=== PATIENT | female | born 1935 | race Caucasian/White ===

== ENCOUNTER 2018-11-28 17:49 | Emergency (ER) | payer MEDICARE, OTHER ==
[~2018-11-28] VITALS: Ht 154.9 cm; Wt 44.5 kg
[2018-11-28] MEDS ORDERED: ASPIRIN 81 MG CHEW (CHILDREN'S ASA) ONE (17:58)
--- NOTE | 2018-11-28 18:01 | ED Cardiac General ---
History of Present Illness General Chief Complaint: Respiratory Problems Stated Complaint: SOA Source: patient (EXTREMELY DIFFICULT HISTORIAN) History of Present Illness Date Seen by Provider: Nov 28, 2018 Time Seen by Provider: 17:49 Initial Comments PT ARRIVES VIA POV FROM HOME STATES "BREATHING" "HURTING" "PAIN" C/O PAIN TO LEFT CHEST STATES SYMPTOMS BEGAN A COUPLE OF DAYS AGO, NO DIFFERENT TODAY HAS NOT SOUGHT CARE UNTIL TODAY TOOK 2 ALEVE JUST PRIOR TO ARRIVAL, OTHERWISE HAS NOT TAKEN ANYTHING FOR PAIN NO SWELLING TO FEET/ANKLES OCCASIONAL MILD COUGH NO FEVER NO DIRECT TRAUMA, BUT FEELS LIKE SHE PULLED A MUSCLE LIFTING A GALLON OF WATER AND MILK NO HISTORY OF CARDIAC OR RESPIRATORY PROBLEMS HAS HX OF HTN AND "STOMACH PROBLEMS" STATES SHE HAS HAD "ALOT OF GAS AND CONSTIPATION FOR 4-5 DAYS" "I HAVE IBS" PCP: DR. FREEDMAN--HAS APPOINTMENT NEXT WEEK "JUST MOVED HERE" Allergies and Home Medications Allergies Coded Allergies: codeine (Verified Allergy, Unknown, 11/28/18) sulfamethoxazole (Verified Allergy, Unknown, 11/28/18) tramadol (Verified Allergy, Unknown, 11/28/18) trimethoprim (Verified Allergy, Unknown, 11/28/18) Uncoded Allergies: IV CONTRAST (Allergy, Unknown, 11/28/18) Home Medications Cefdinir 300 Mg Capsule, 300 MG PO BID Prescribed by: VARSHA JAIME on 11/28/181925 Ondansetron 8 Mg Tab.rapdis, 8 MG PO Q6H Prescribed by: VARSHA JAIME on 11/28/181925 Patient Home Medication List Home Medication List Reviewed: Yes Review of Systems Review of Systems Constitutional: No fever Respiratory: No Symptoms Reported, Shortness of Air Cardiovascular: See HPI, Chest Pain Gastrointestinal: See HPI, Constipated; Denies Nausea, Denies Vomiting Musculoskeletal: No back pain Psychiatric/Neurological: No Symptoms Reported Past Ofpxaqx-Etikvn-Iiylxj Hx Patient Social History Smoking Status: Current Everyday Smoker (> 1 PPD) Recent Foreign Travel: No Contact w/Someone Who Travel: No Past Medical History Surgeries: Yes (LEFT HIP; HYST; CATARACTS) Eye Surgery, Gallbladder, Hysterectomy, Orthopedic, Tonsillectomy Respiratory: No Cardiac: Yes Hypertension Neurological: No Genitourinary: No Gastrointestinal: Yes Gastroesophageal Reflux, Irritable Bowel Musculoskeletal: No Endocrine: No HEENT: No Cancer: No Psychosocial: Yes Anxiety Physical Exam Vital Signs Vital Signs - First Documented 11/28/18 17:49 Pulse 63 Resp 17 B/P (MAP) 140/72 (94) Pulse Ox 100 O2 Delivery Room Air Capillary Refill : Height, Weight, BMI Height: '" Weight: lbs. oz. kg; BMI Method: General Appearance: No Apparent Distress, Cachetic Neck: Full Range of Motion, Normal Inspection, Non Tender, Supple; No Carotid Bruit Respiratory: Normal Breath Sounds, No Accessory Muscle Use, No Respiratory Distress, Other (LEFT ANTERIOR CHEST WALL TENDERNESS. NO CREPITANCE OF SUB Q AIR. 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 II- XII Norm as Tested, Other (SOMEWHAT ANXIOUS) Skin: Normal Color, Warm/Dry; No Rash Progress/Results/Core Measures Results/Orders Lab Results Laboratory Tests Test 11/28/18 18:00 11/28/18 18:54 Range/Units White Blood Count 7.8 4.3-11.0 10^3/uL Red Blood Count 4.31 L 4.35-5.85 10^6/uL Hemoglobin 13.3 11.5-16.0 G/DL Hematocrit 39 35-52 % Mean Corpuscular Volume 91 80-99 FL Mean Corpuscular Hemoglobin 31 25-34 PG Mean Corpuscular Hemoglobin Concent 34 32-36 G/DL Red Cell Distribution Width 13.3 10.0-14.5 % Platelet Count 276 130-400 10^3/uL Mean Platelet Volume 10.7 H 7.4-10.4 FL Neutrophils (%) (Auto) 63 42-75 % Lymphocytes (%) (Auto) 27 12-44 % Monocytes (%) (Auto) 9 0-12 % Eosinophils (%) (Auto) 1 0-10 % Basophils (%) (Auto) 0 0-10 % Neutrophils # (Auto) 4.9 1.8-7.8 X 10^3 Lymphocytes # (Auto) 2.1 1.0-4.0 X 10^3 Monocytes # (Auto) 0.7 0.0-1.0 X 10^3 Eosinophils # (Auto) 0.1 0.0-0.3 10^3/uL Basophils # (Auto) 0.0 0.0-0.1 10^3/uL Prothrombin Time 12.2 12.2-14.7 SEC INR Comment 0.9 0.8-1.4 Activated Partial Thromboplast Time 32 24-35 SEC Sodium Level 135 135-145 MMOL/L Potassium Level 3.6 3.6-5.0 MMOL/L Chloride Level 99 98-107 MMOL/L Carbon Dioxide Level 25 21-32 MMOL/L Anion Gap 11 5-14 MMOL/L Blood Urea Nitrogen 10 7-18 MG/DL Creatinine 0.86 0.60-1.30 MG/DL Estimat Glomerular Filtration Rate > 60 BUN/Creatinine Ratio 12 Glucose Level 113 H 70-105 MG/DL Calcium Level 9.7 8.5-10.1 MG/DL Corrected Calcium 9.5 8.5-10.1 MG/DL Magnesium Level 1.5 L 1.6-2.4 MG/DL Total Bilirubin 0.5 0.1-1.0 MG/DL Aspartate Amino Transf (AST/SGOT) 21 5-34 U/L Alanine Aminotransferase (ALT/SGPT) 11 0-55 U/L Alkaline Phosphatase 65 40-136 U/L Total Creatine Kinase 36 29-168 U/L Creatine Kinase MB 1.4 <6.6 NG/ML Myoglobin 28.3 10.0-92.0 NG/ML Troponin I < 0.028 <0.028 NG/ML B-Type Natriuretic Peptide 38.0 <100.0 PG/ML Total Protein 7.1 6.4-8.2 GM/DL Albumin 4.3 3.2-4.5 GM/DL Amylase Level 80 25-125 U/L Lipase 13 8-78 U/L Urine Color YELLOW Urine Clarity CLEAR Urine pH 5 5-9 Urine Specific [place] 1.020 1.016-1.022 Urine Protein NEGATIVE NEGATIVE Urine Glucose (UA) NEGATIVE NEGATIVE Urine Ketones NEGATIVE NEGATIVE Urine Nitrite NEGATIVE NEGATIVE Urine Bilirubin NEGATIVE NEGATIVE Urine Urobilinogen 1 NORMAL MG/DL Urine Leukocyte Esterase 1+ H NEGATIVE Urine RBC (Auto) NEGATIVE NEGATIVE Urine RBC NONE /HPF Urine WBC 2-5 /HPF Urine Squamous Epithelial Cells 10-25 H /HPF Urine Renal Epithelial Cells RARE /HPF Urine Crystals NONE /LPF Urine Bacteria MODERATE H /HPF Urine Casts NONE /LPF Urine Mucus NEGATIVE /LPF Urine Yeast FEW H /HPF Urine Culture Indicated NO My Orders Orders - VARSHA JAIME DO Ed Iv/Invasive Line Start (11/28/18 17:56) Ekg Tracing (11/28/18 17:56) O2 (11/28/18 17:56) Monitor-Rhythm Ecg Trace Only (11/28/18 17:56) Amylase (11/28/18 17:56) BNP (11/28/18 17:56) Cbc With Automated Diff (11/28/18 17:56) Comprehensive Metabolic Panel (11/28/18 17:56) Creatine Kinase (11/28/18 17:56) Creatine Kinase Mb (11/28/18 17:56) Lipase (11/28/18 17:56) Magnesium (11/28/18 17:56) Protime With Inr (11/28/18 17:56) Partial Thromboplastin Time (11/28/18 17:56) Ua Culture If Indicated (11/28/18 17:56) Myoglobin Serum (11/28/18 17:56) Troponin I (11/28/18 17:56) Aspirin Chewable Tablet (Baby Aspirin Ch (11/28/18 17:58) Chest 1 View, Ap/Pa Only (11/28/18 18:10) Magnesium Oxide Tablet (Mag Ox Tablet) (11/28/18 18:45) Ketorolac Injection (Toradol Injection) (11/28/18 18:45) Ed Iv/Invasive Line Start (11/28/18 18:45) Lactated Ringers (Lr 1000 Ml Iv Solution (11/28/18 18:45) Urine Culture (11/28/18 19:18) Cefdinir Capsule (Omnicef Capsule) (11/28/18 19:30) Medications Given in ED Current Medications Medications Dose Ordered Sig/Karri Route Start Time Stop Time Status Last Admin Dose Admin Aspirin 81 mg STK-MED ONCE .ROUTE 11/28/18 17:58 11/28/18 18:08 DC 11/28/18 18:09 81 MG Ketorolac Tromethamine 30 mg ONCE ONCE IVP 11/28/18 18:45 11/28/18 18:46 DC 11/28/18 19:08 30 MG Lactated Ringer's 1,000 ml @ 0 mls/hr Q0M ONCE IV 11/28/18 18:45 11/28/18 18:46 DC 11/28/18 19:08 999 MLS/HR Magnesium Oxide 1,200 mg ONCE ONCE PO 11/28/18 18:45 11/28/18 18:46 DC 11/28/18 19:08 1,200 MG Vital Signs/I&O 11/28/18 17:49 Pulse 63 Resp 17 B/P (MAP) 140/72 (94) Pulse Ox 100 O2 Delivery Room Air Progress Progress Note : Progress Note SYMPTOMS IMPROVED AT DISMISSAL Initial ECG Impression Date: Nov 28, 2018 Initial ECG Impression Time: 17:57 Initial ECG Rate: 65 Initial ECG Rhythm: Normal Sinus Initial ECG Comparisson: No Previous ECG Available Diagnostic Imaging Comments CXR--NO ACUTE PROCESS, PER RADIOLOGIST REPORT AT 1839 Reviewed: Reviewed by Me Departure Impression Primary Impression: Left-sided chest wall pain Additional Impressions: UTI (urinary tract infection) Hypomagnesemia Disposition: 01 HOME, SELF-CARE Condition: Improved Departure-Patient Inst. Referrals: CHIKIS FREEDMAN MD Patient Instructions: Low Magnesium Level (DC), Urinary Tract Infection, Adult (DC), Costochondritis Add. Discharge Instructions: INCREASE YOUR CLEAR LIQUIDS--NO COFFEE, POP OR TEA TYLENOL AND ALEVE NEEDED FOR PAIN KEEP YOUR APPOINTMENT ON SUNDAY WITH DR. FREEDMAN All discharge instructions reviewed with patient and/or family. Voiced understanding. Scripts Ondansetron (Ondansetron Odt) 8 Mg Tab.rapdis 8 MG PO Q6H for Nausea/Vomiting, #10 TAB Prov: VARSHA JAIME DO 11/28/18 Cefdinir (Cefdinir) 300 Mg Capsule 300 MG PO BID for FOR INFECTION, #20 CAP Prov: VARSHA JAIME DO 11/28/18 VARSHA JAIME DO Nov 28, 2018 18:01
[2018-11-28] MEDS ORDERED: AMLO10TA7 (18:07)
[2018-11-28] MEDS ORDERED: FLUT16SP22 (18:07)
[2018-11-28] MEDS ORDERED: MONT10TA24 (18:07)
[2018-11-28] MEDS ORDERED: LORA0.5T (18:07)
[2018-11-28] MEDS ORDERED: CETI10TA17 (18:07)
[2018-11-28] MEDS ORDERED: ESOM40CA52 (18:07)
[2018-11-28] MEDS ORDERED: ONDA8TAB12 (18:07)
[2018-11-28 18:18] LABS: BASOPHILS % (AUTO) 0 % (0-10); EOSINOPHILS # (AUTO) 0.1 10^3/uL (0.0-0.3); EOSINOPHILS % (AUTO) 1 % (0-10); HEMATOCRIT 39 % (35-52); HEMOGLOBIN 13.3 G/DL (11.5-16.0); LYMPHOCYTES # (AUTO) 2.1 X 10^3 (1.0-4.0); LYMPHOCYTES % (AUTO) 27 % (12-44); MEAN CORPUSCULAR HEMOGLOBIN 31 PG (25-34); MEAN CORPUSCULAR HGB CONC 34 G/DL (32-36); MEAN CORPUSCULAR VOLUME 91 FL (80-99); MEAN PLATELET VOLUME 10.7 FL (7.4-10.4); MONOCYTES # (AUTO) 0.7 X 10^3 (0.0-1.0); MONOCYTES % (AUTO) 9 % (0-12); NEUTROPHILS # (AUTO) 4.9 X 10^3 (1.8-7.8); NEUTROPHILS % (AUTO) 63 % (42-75); PLATELET COUNT 276 10^3/uL (130-400); RED CELL DISTRIBUTION WIDTH 13.3 % (10.0-14.5); WHITE BLOOD COUNT 7.8 10^3/uL (4.3-11.0)
[2018-11-28 18:24] LABS: INR 0.9 (0.8-1.4); PROTHROMBIN TIME PATIENT 12.2 SEC (12.2-14.7)
[2018-11-28 18:34] LABS: ALANINE AMINOTRANSFERASE 11 U/L (0-55); ALBUMIN 4.3 GM/DL (3.2-4.5); ALKALINE PHOSPHATASE 65 U/L (40-136); AMYLASE 80 U/L (25-125); BILIRUBIN,TOTAL 0.5 MG/DL (0.1-1.0); BUN/CREATININE RATIO 12; CALCIUM 9.7 MG/DL (8.5-10.1); CARBON DIOXIDE 25 MMOL/L (21-32); CHLORIDE 99 MMOL/L (98-107); CREATINE KINASE 36 U/L (29-168); CREATININE SERUM 0.86 MG/DL (0.60-1.30); GFR ESTIMATED > 60; GLUCOSE 113 MG/DL (70-105); LIPASE 13 U/L (8-78); MAGNESIUM 1.5 MG/DL (1.6-2.4); POTASSIUM 3.6 MMOL/L (3.6-5.0); SODIUM 135 MMOL/L (135-145); TOTAL PROTEIN 7.1 GM/DL (6.4-8.2)
--- NOTE | 2018-11-28 18:37 | Diagnostic Imaging Report ---
INDICATION: Left shoulder and arm pain. EXAMINATION: Portable upright AP view of the chest is obtained. COMPARISON: No previous study is available for comparison at this time. FINDINGS: Heart size and pulmonary vasculature are within normal limits, and the lungs are clear, bilaterally. IMPRESSION: Unremarkable chest. Dictated by: Dictated on workstation # [id number]
[2018-11-28 18:41] LABS: CREATINE KINASE MB 1.4 NG/ML (<6.6)
[2018-11-28] MEDS ORDERED: LACTATED RINGERS 1,000 ML IV ONE (18:45)
[2018-11-28] MEDS ORDERED: KETOROLAC 30 MG/ML VIAL IVP ONE (18:45)
[2018-11-28] MEDS ORDERED: MAGNESIUM OXIDE (MAG-OX)400 MG TAB PO ONE (18:45)
[2018-11-28 19:00] LABS: BILIRUBIN,URINE NEGATIVE (NEGATIVE); CLARITY,URINE CLEAR; COLOR,URINE YELLOW; GLUCOSE, URINE (UA) NEGATIVE (NEGATIVE); KETONES,URINE NEGATIVE (NEGATIVE); LEUKOCYTE ESTERASE ,URINE 1+ (NEGATIVE); NITRITE,URINE NEGATIVE (NEGATIVE); PH,URINE 5 (5-9); PROTEIN,URINE NEGATIVE (NEGATIVE); UROBILINOGEN,URINE 1 MG/DL (NORMAL)
[2018-11-28 19:09] LABS: RENAL EPITHELIAL CELLS,URINE RARE /HPF
[2018-11-28 19:10] LABS: YEAST,URINE FEW /HPF
[2018-11-28 19:11] LABS: BACTERIA,URINE MODERATE /HPF
[2018-11-28] MEDS ORDERED: CEFD300C3 PO (19:26)
[2018-11-28] MEDS ORDERED: ONDA8TAB13 PO (19:26)
[2018-11-28] MEDS ORDERED: CEFDINIR 300 MG (OMNICEF) CAP PO ONE (19:30)
[2018-11-28 20:03] VITALS: BP 133/53
== END 2018-11-28 20:04 | disposition home or self-care (01) ==
LOC: ER 17:51
DX: R07.89 Other chest pain (principal); N39.0 Urinary tract infection, site not specified; E83.42 Hypomagnesemia; I10 Essential (primary) hypertension; F41.9 Anxiety disorder, unspecified; K21.9 Gastro-esophageal reflux disease without esophagitis; K58.9 Irritable bowel syndrome, unspecified; F17.210 Nicotine dependence, cigarettes, uncomplicated; Z90.710 Acquired absence of both cervix and uterus; Z90.89 Acquired absence of other organs; Z88.5 Allergy status to narcotic agent; Z88.2 Allergy status to sulfonamides; Z88.1 Allergy status to other antibiotic agents; Z91.041 Radiographic dye allergy status
CPT/HCPCS: 36415; 71045; 80053; 81000; 82150; 82550; 82553; 83690; 83735; 83874; 83880; 84484; 85025; 85610; 85730; 87088; 93041

== ENCOUNTER → 2020-07-14 | Outpatient (CLI) | payer MEDICARE ==
[~2020-07-14] MED LIST: AMLO-251; CEFD300C3 PO; CETI10TA17; ESOM40CA52; FLUT16SP22; LORA0.5T; MONT10TA32; ONDA8TAB13 PO; ONDA8TAB15
--- NOTE | 2020-07-14 14:52 | Diagnostic Imaging Report ---
PROCEDURE: CT left lower extremity without contrast. TECHNIQUE: Multiple contiguous axial images were obtained through the left lower extremity without the use of intravenous contrast. Sagittal and coronal reformations were then performed. Auto Exposure Controls were utilized during the CT exam to meet ALARA standards for radiation dose reduction. INDICATION: Left tibial plateau fracture. COMPARISON: None. FINDINGS: There is diffuse osteopenia, resulting in suboptimal evaluation. There is a moderate right knee joint effusion. There is mild depression of the lateral tibial plateau by about 3 mm at the lateral most aspect. There is mild underlying sclerosis. Alignment otherwise appears normal. The menisci and ligaments are not well evaluated by CT. There is mild generalized muscular atrophy. IMPRESSION: 1. Minimally depressed lateral tibial plateau, concerning for an acute fracture. Please correlate with clinical history and if indicated MRI could be considered to confirm acuity. 2. Moderate left knee joint effusion. Dictated by: Dictated on workstation # [id number]
== END ==
LOC: RAD 13:15
PROVIDERS: ATTEND Internal Medicine
DX: S82.142A Displaced bicondylar fracture of left tibia, initial encounter for closed fracture (principal)
CPT/HCPCS: 73700

== ENCOUNTER 2021-02-13 13:25 | Emergency (ER) | payer MEDICARE ==
[~2021-02-13] VITALS: Ht 167 cm; Wt 44.5 kg
[~2021-02-13 13:25] MED LIST changes: +MONT-40; -MONT10TA32; +ONDA-106; -ONDA8TAB15
--- NOTE | 2021-02-13 13:57 | ED Lower Extremity ---
General Stated Complaint: FALL Source: patient, family Exam Limitations: no limitations (ANTONIO INGRAM) History of Present Illness Date Seen by Provider: Feb 13, 2021 Time Seen by Provider: 13:56 Initial Comments Patient is a 85-year-old female who presents ED with left knee pain. Mechanical fall around 4:00 this morning. She was walking to the bathroom when her cane got stuck in a rug. She fell landing on her left knee. Patient lives with daughter. Assisted patient up on the bed. Has been icing the left knee. Has not been able to stand or bear weight or move her left knee at this time. Denies hitting her head, loss of consciousness, chest pain, back pain or on blood thinners. Denies taking anything for pain. (ANTONIO INGRAM) Allergies and Home Medications Allergies Coded Allergies: codeine (Verified Allergy, Unknown, 11/28/18) sulfamethoxazole (Verified Allergy, Unknown, 11/28/18) tramadol (Verified Allergy, Unknown, 11/28/18) trimethoprim (Verified Allergy, Unknown, 11/28/18) Uncoded Allergies: IV CONTRAST (Allergy, Unknown, 11/28/18) Patient Home Medication List Home Medication List Reviewed: Yes (ANTONIO INGRAM) Amlodipine Besylate (Amlodipine Besylate) 10 Mg Tablet, (Reported) Entered as Reported by: MATTHEW FARRIS on 11/28/181806 Cefdinir (Cefdinir) 300 Mg Capsule, 300 MG PO BID Prescribed by: VARSHA JAIME on 11/28/181925 Cetirizine HCl (Cetirizine HCl) 10 Mg Tablet, (Reported) Entered as Reported by: MATTHEW FARRIS on 11/28/181806 Esomeprazole Magnesium (Esomeprazole Magnesium) 40 Mg Capsule.dr, (Reported) Entered as Reported by: MATTHEW FARRIS on 11/28/181806 Fluticasone Propionate (Fluticasone Propionate) 16 Gm [place].susp, (Reported) Entered as Reported by: MATTHEW FARRIS on 11/28/181806 Hydrocodone/Acetaminophen (Hydrocodone-Acetamin 5-325 mg) 1 Each Tablet, 1 TAB PO Q4H PRN for PAIN-MODERATE (5-7) Prescribed by: SANDOVAL SALAZAR on 02/13/21 1514 Lorazepam (Lorazepam) 0.5 Mg Tablet, (Reported) Entered as Reported by: MATTHEW FARRIS on 11/28/181806 Montelukast Sodium (Montelukast Sodium) 10 Mg Tablet, (Reported) Entered as Reported by: MATTHEW FARRIS on 11/28/181806 Ondansetron (Ondansetron Odt) 8 Mg Tab.rapdis, 8 MG PO Q6H Prescribed by: VARSHA JAIME on 11/28/181925 Ondansetron (Ondansetron Odt) 4 Mg Tab.rapdis, 4 MG PO TID Prescribed by: SANDOVAL SALAZAR on 02/13/211947 Last Action: New Order Ondansetron HCl (Ondansetron HCl) 8 Mg Tablet, (Reported) Entered as Reported by: MATTHEW FARRIS on 11/28/181806 Review of Systems Constitutional: No chills, No dizziness, No fever, No malaise EENTM: No ear pain, No eye pain, No throat pain Respiratory: No cough, No short of breath Gastrointestinal: No abdominal pain, No diarrhea, No vomiting Genitourinary: No decreased output Musculoskeletal: joint pain (Left knee tenderness. Joint effusion noted. 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 oz. kg; 18.00 BMI Method: General Appearance: WD/WN, no apparent distress HEENT: PERRL/EOMI, normal ENT inspection, TMs normal Neck: non-tender, full range of motion, supple, normal inspection Cardiovascular: regular rate, rhythm, no edema, no gallop Respiratory: chest non-tender, lungs clear, normal breath sounds, no respira tory distress Gastrointestinal: normal bowel sounds, non tender, soft Knees: left knee bone tenderness, left knee joint effusion, left knee soft tissue tenderness, left knee swelling Neurologic/Psychiatric: weigh box tender II-XII nml as tested, no motor/sensory deficits, alert, normal mood/affect, oriented x 3 Skin: normal color, warm/dry (ANTONIO INGRAM) Progress/Results/Core Measures Results/Orders My Orders Orders - DIMITRI KLINE MD Hydrocodone/Apap 5/325 Tablet (Lortab 5 (02/13/21 15:45) (DIMITRI KLINE MD) Medications Given in ED Current Medications Medications Dose Ordered Sig/Karri Route Start Time Stop Time Status Last Admin Dose Admin Acetaminophen/ Hydrocodone Bitart 1 ea ONCE ONCE PO 02/13/21 15:45 02/13/21 15:46 DC 02/13/21 15:42 1 EA (DIMITRI KLINE MD) Vital Signs/I&O 02/13/21 02/13/21 02/13/21 13:30 13:30 16:00 Temp 37.0 37.0 Pulse 64 64 67 Resp 18 18 20 B/P (MAP) 157/75 (102) 157/75 (102) 142/70 Pulse Ox 97 97 98 O2 Delivery Room Air Room Air Room Air (DIMITRI KLINE MD) Departure Communication (Admissions) X-ray was negative for fracture. Large joint effusion noted. Concerning for occult fracture. Patient was placed in a knee immobilizer. We will have patient follow-up with Dr. Philip orthopedic outpatient . Discussed patient with Dr. Philip who recommends outpatient follow-up with MRI. Patient was given a order for a wheelchair for at home. Lives at home with daughter to help patient get around. Will discharge with pain medication. She has no other complaints. Mechanical fall. GCS 15. Alert and oriented x3. Neurovascularly intact. (ANTONIO INGRAM) Impression Primary Impression: Knee pain Disposition: 01 HOME, SELF-CARE Condition: Stable Departure-Patient Inst. Decision time for Depature: 14:57 (ANTONIO INGRAM) Referrals: NO,LOCAL PHYSICIAN (PCP) Primary Care Physician TRUMAN PHILIP MD Patient Instructions: Joint Pain, Knee Pain (DC) Scripts Ondansetron (Ondansetron Odt) 4 Mg Tab.rapdis 4 MG PO TID for Nausea, #10 TAB Prov: ANTONIO INGRAM 02/13/21 Hydrocodone/Acetaminophen (Hydrocodone-Acetamin 5-325 mg) 1 Each Tablet 1 TAB PO Q4H PRN for PAIN-MODERATE (5-7), #14 TAB Prov: ANTONIO INGRAM 02/13/21 ATTENDING PHYSICIAN NOTE: I was physically present as attending physician in the emergency department during the care of this patient, but I was not directly involved in the decision making or delivery of care for this patient except for ordering pain medication. (DIMITRI KLINE MD) ANTONIO INGRAM Feb 13, 2021 13:57 DIMITRI KLINE MD Feb 13, 2021 20:26
--- NOTE | 2021-02-13 14:37 | Diagnostic Imaging Report ---
EXAMINATION: Left knee radiographs, 3 views. COMPARISON: None. HISTORY: 85-year-old female, fall. Left knee pain. FINDINGS: The bones appear demineralized. There is a large knee joint effusion. There is no radiographically appreciable fracture. The joint spaces appear fairly well preserved. There is no identified radiopaque foreign body. IMPRESSION: 1. Large knee joint effusion. 2. Bone demineralization without radiographically appreciable fracture. Particularly given degree of bone demineralization as well as presence of knee joint effusion, there is high concern for fracture, MRI of the left knee is recommended for further assessment. 3. No identified radiopaque foreign body. Dictated by: Dictated on workstation # [id number]
[2021-02-13] MEDS ORDERED: ACHD5005 PO (15:13)
[2021-02-13] MEDS ORDERED: HYDROcodone/APAP 5 MG/325 MG (LORTAB) TAB PO ONE (15:45)
[2021-02-13 16:00] VITALS: BP 142/70
[2021-02-13] MEDS ORDERED: RX-ONDANSETRON 4 MG ODT (ZOFRAN) PPK #4 ONE (19:45)
[2021-02-13] MEDS ORDERED: ONDA4TAB11 PO (19:48)
== END 2021-02-13 16:00 | disposition home or self-care (01) ==
LOC: EDUNIT# 13:25 → ER 13:26
DX: M25.562 Pain in left knee (principal); I10 Essential (primary) hypertension; K21.9 Gastro-esophageal reflux disease without esophagitis; F41.9 Anxiety disorder, unspecified; Z79.899 Other long term (current) drug therapy
CPT/HCPCS: 73562; 99283; L1830

== ENCOUNTER 2021-04-23 16:10 | Emergency (ER) | payer MEDICARE ==
[~2021-04-23] VITALS: Ht 160 cm; Wt 50.0 kg
[~2021-04-23 16:10] MED LIST changes: +ACHD5005 PO; +ONDA4TAB11 PO
[2021-04-23] MEDS ORDERED: NS IV 500 ML 500 ML IV ONE (17:15)
[2021-04-23] MEDS ORDERED: NS IV 1000 ML 1,000 ML IV SCH (17:45)
[2021-04-23] MEDS ORDERED: NS IV 1000 ML 1,000 ML ONE (17:47)
[2021-04-23 17:52] LABS: BASOPHILS % (AUTO) 0 % (0-10); EOSINOPHILS % (AUTO) 0 % (0-10); HEMATOCRIT 38 % (35-52); HEMOGLOBIN 13.2 g/dL (11.5-16.0); LYMPHOCYTES # (AUTO) 1.3 10^3/uL (1.0-4.0); LYMPHOCYTES % (AUTO) 16 % (12-44); MEAN CORPUSCULAR HEMOGLOBIN 30 pg (25-34); MEAN CORPUSCULAR HGB CONC 35 g/dL (32-36); MEAN CORPUSCULAR VOLUME 88 fL (80-99); MEAN PLATELET VOLUME 10.9 fL (9.0-12.2); MONOCYTES # (AUTO) 0.9 10^3/uL (0.0-1.0); MONOCYTES % (AUTO) 11 % (0-12); NEUTROPHILS # (AUTO) 5.9 10^3/uL (1.8-7.8); NEUTROPHILS % (AUTO) 73 % (42-75); PLATELET COUNT 281 10^3/uL (130-400); WHITE BLOOD COUNT 8.1 10^3/uL (4.3-11.0)
[2021-04-23 18:01] LABS: BILIRUBIN,URINE NEGATIVE (NEGATIVE); CLARITY,URINE SL CLOUDY; COLOR,URINE YELLOW; GLUCOSE, URINE (UA) NEGATIVE (NEGATIVE); KETONES,URINE TRACE (NEGATIVE); LEUKOCYTE ESTERASE ,URINE NEGATIVE (NEGATIVE); NITRITE,URINE NEGATIVE (NEGATIVE); PROTEIN,URINE NEGATIVE (NEGATIVE)
[2021-04-23 18:04] LABS: ALBUMIN 3.6 GM/DL (3.2-4.5)
[2021-04-23 18:05] LABS: POTASSIUM 2.8 MMOL/L (3.6-5.0)
[2021-04-23 18:06] LABS: CALCIUM 9.2 MG/DL (8.5-10.1)
[2021-04-23 18:07] LABS: TOTAL PROTEIN 6.6 GM/DL (6.4-8.2)
[2021-04-23 18:09] LABS: BILIRUBIN,TOTAL 0.7 MG/DL (0.1-1.0)
[2021-04-23 18:10] LABS: BACTERIA,URINE NEGATIVE /HPF; WBC,URINE 0-2 /HPF
[2021-04-23 18:11] LABS: CREATININE SERUM 0.69 MG/DL (0.60-1.30)
--- NOTE | 2021-04-23 18:25 | ED Abdominal Pain ---
General Chief Complaint: Abdominal/GI Problems Stated Complaint: FLU FOR 8 DAYS, N/V/DIARHEA Nursing Triage Note: TO ED PER W/C ACCOMPIED BY DAUGHTER PATIENT AND DAUGHTER REPORT PATIENT HAS HAD VOMITING,DIARRHEA,WITH ABD PAIN FOR 8 DAYS. DID HOME COVID TEST 3 DAYS AGO THAT WAS NEG. HAS HAD COVID VACCAINE X2 (KAROL SHARMA) History of Present Illness Date Seen by Provider: Apr 23, 2021 Time Seen by Provider: 17:00 Initial Comments 85-year-old female presents for an 8-day history of diarrhea, vomiting, and abdominal pain. She has a history of diverticulitis. She has chronic GI symptoms. She reports no solid food intake for the last few days. She is able to liquids and. She has been taking Zofran with no improvement. She has not seen her Primary care provider. Previous cholecystectomy. She has received her COVID vaccine and booster. She took a home Covid test that was -3 days ago. Timing/Duration: 1 Week Severity/Quality: Moderate Location: Generalized Abdomen Radiation: No Radiation Associated Symptoms: No Back Pain, No Chest Pain, No Diaphoresis, No Fever/Chills, No Heartburn; Nausea/Vomiting; No Shortness of Air, No Swelling/Mass in Abdomen; Weakness (KAROL SHARMA) Allergies and Home Medications Allergies Coded Allergies: codeine (Verified Allergy, Unknown, 11/28/18) sulfamethoxazole (Verified Allergy, Unknown, 11/28/18) tramadol (Verified Allergy, Unknown, 11/28/18) trimethoprim (Verified Allergy, Unknown, 11/28/18) Uncoded Allergies: IV CONTRAST (Allergy, Unknown, 11/28/18) Patient Home Medication List Home Medication List Reviewed: Yes (KAROL SHARMA) Amlodipine Besylate (Amlodipine Besylate) 10 Mg Tablet, (Reported) Entered as Reported by: MATTHEW FARRIS on 11/28/181806 Cefdinir (Cefdinir) 300 Mg Capsule, 300 MG PO BID Prescribed by: VARSHA JAIME on 11/28/181925 Cetirizine HCl (Cetirizine HCl) 10 Mg Tablet, (Reported) Entered as Reported by: MATTHEW FARRIS on 11/28/181806 Ciprofloxacin HCl (Cipro) 250 Mg Tablet, 250 MG PO BID Prescribed by: KAROL SHARMA on 04/23/211925 Esomeprazole Magnesium (Esomeprazole Magnesium) 40 Mg Capsule.dr, (Reported) Entered as Reported by: MATTHEW FARRIS on 11/28/181806 Fluticasone Propionate (Fluticasone Propionate) 16 Gm [place].susp, (Reported) Entered as Reported by: MATTHEW FARRIS on 11/28/181806 Hydrocodone/Acetaminophen (Hydrocodone-Acetamin 5-325 mg) 1 Each Tablet, 1 TAB PO Q4H PRN for PAIN-MODERATE (5-7) Prescribed by: SANDOVAL SALAZAR on 02/13/21 1514 Lorazepam (Lorazepam) 0.5 Mg Tablet, (Reported) Entered as Reported by: MATTHEW FARRIS on 11/28/181806 Montelukast Sodium (Montelukast Sodium) 10 Mg Tablet, (Reported) Entered as Reported by: MATTHEW FARRIS on 11/28/181806 Ondansetron (Ondansetron Odt) 8 Mg Tab.rapdis, 8 MG PO Q6H Prescribed by: VARSHA JAIME on 11/28/181925 Ondansetron (Ondansetron Odt) 4 Mg Tab.rapdis, 4 MG PO TID Prescribed by: SANDOVAL SALAZAR on 02/13/21 1948 Ondansetron (Ondansetron Odt) 4 Mg Tab.rapdis, 4 MG PO Q6H PRN for NAUSEA/VOMITING Prescribed by: KAROL SHARMA on 04/23/211925 Ondansetron HCl (Ondansetron HCl) 8 Mg Tablet, (Reported) Entered as Reported by: MATTHEW FARRIS on 11/28/181806 Review of Systems Review of Systems Constitutional: see HPI, malaise, weakness EENTM: No Symptoms Reported, See HPI Respiratory: No Symptoms Reported, See HPI Cardiovascular: No Symptoms Reported, See HPI Gastrointestinal: See HPI, Abdominal Pain; Denies Constipated; Diarrhea; Denies Difficulty Swallowing; Nausea, Poor Appetite; Denies Rectal Bleeding; Vomiting Genitourinary: No Symptoms Reported, See HPI (KAROL SHARMA) All Other Systems Reviewed Negative Unless Noted: Yes (KAROL SHARMA) Past Bdlodvv-Jsqmfw-Ziaogd Hx Immunizations Up To Date Tetanus Booster (TDap): Unknown First/Initial COVID19 Vaccinat: MAY 2020 (KAROL SHARMA MICHAEL) Seasonal Allergies Seasonal Allergies: No (EDITHKAROL RODRIGUEZ) Past Medical History Surgeries: Yes (LEFT HIP; HYST; CATARACTS) Eye Surgery, Gallbladder, Hysterectomy, Orthopedic, Tonsillectomy Respiratory: No Cardiac: Yes Hypertension Neurological: No [employer] History: Hysterectomy Genitourinary: No Gastrointestinal: Yes Gastroesophageal Reflux, Irritable Bowel Musculoskeletal: No Endocrine: No HEENT: No Cancer: No Psychosocial: Yes Anxiety Integumentary: No (EDITHKAROL) Family Medical History Reviewed Nursing Family Hx (EDITHKAROL RODRIGUEZ) Physical Exam Vital Signs Vital Signs - First Documented 04/23/21 16:56 Temp 36.1 Pulse 77 Resp 18 B/P (MAP) 175/75 (108) Pulse Ox 99 O2 Delivery Room Air (ADDISON,VARSHA K DO) Vital Signs Capillary Refill : Less Than 3 Seconds (KAROL SHARMA MICHAEL) Height/Weight/BMI Height: '" Weight: lbs. oz. kg; 19.00 BMI Method: General Appearance: WD/WN, no apparent distress HEENT: PERRL/EOMI, normal ENT inspection, TMs normal, pharynx normal Neck: non-tender, full range of motion, supple, normal inspection Respiratory: chest non-tender, lungs clear, normal breath sounds Cardiovascular: normal peripheral pulses, regular rate, rhythm Gastrointestinal: soft, abnormal bowel sounds (hypoactive); No guarding, No rebound; tenderness (generalized); No mass Back: normal inspection, no CVA tenderness, no vertebral tenderness Neurologic/Psychiatric: no motor/sensory deficits, alert, normal mood/affect, oriented x 3 Skin: normal color, warm/dry (EDITHKAROL RODRIGUEZ) Progress/Results/Core Measures Results/Orders Lab Results Laboratory Tests Test 04/23/21 17:42 04/23/21 17:55 Range/Units White Blood Count 8.1 4.3-11.0 10^3/uL Red Blood Count 4.34 3.80-5.11 10^6/uL Hemoglobin 13.2 11.5-16.0 g/dL Hematocrit 38 35-52 % Mean Corpuscular Volume 88 80-99 fL Mean Corpuscular Hemoglobin 30 25-34 pg Mean Corpuscular Hemoglobin Concent 35 32-36 g/dL Red Cell Distribution Width 12.6 10.0-14.5 % Platelet Count 281 130-400 10^3/uL Mean Platelet Volume 10.9 9.0-12.2 fL Immature Granulocyte % (Auto) 0 % Neutrophils (%) (Auto) 73 42-75 % Lymphocytes (%) (Auto) 16 12-44 % Monocytes (%) (Auto) 11 0-12 % Eosinophils (%) (Auto) 0 0-10 % Basophils (%) (Auto) 0 0-10 % Neutrophils # (Auto) 5.9 1.8-7.8 10^3/uL Lymphocytes # (Auto) 1.3 1.0-4.0 10^3/uL Monocytes # (Auto) 0.9 0.0-1.0 10^3/uL Eosinophils # (Auto) 0.0 0.0-0.3 10^3/uL Basophils # (Auto) 0.0 0.0-0.1 10^3/uL Immature Granulocyte # (Auto) 0.0 0.0-0.1 10^3/uL Sodium Level 134 L 135-145 MMOL/L Potassium Level 2.8 L 3.6-5.0 MMOL/L Chloride Level 93 L 98-107 MMOL/L Carbon Dioxide Level 25 21-32 MMOL/L Anion Gap 16 H 5-14 MMOL/L Blood Urea Nitrogen 7 7-18 MG/DL Creatinine 0.69 0.60-1.30 MG/DL Estimat Glomerular Filtration Rate 86 BUN/Creatinine Ratio 10 Glucose Level 105 70-105 MG/DL Calcium Level 9.2 8.5-10.1 MG/DL Corrected Calcium 9.5 8.5-10.1 MG/DL Total Bilirubin 0.7 0.1-1.0 MG/DL Aspartate Amino Transf (AST/SGOT) 18 5-34 U/L Alanine Aminotransferase (ALT/SGPT) 13 0-55 U/L Alkaline Phosphatase 108 40-136 U/L Total Protein 6.6 6.4-8.2 GM/DL Albumin 3.6 3.2-4.5 GM/DL Amylase Level 32 25-125 U/L Lipase 9 8-78 U/L Urine Color YELLOW Urine Clarity SL CLOUDY Urine pH 7.0 5-9 Urine Specific [place] 1.010 L 1.016-1.022 Urine Protein NEGATIVE NEGATIVE Urine Glucose (UA) NEGATIVE NEGATIVE Urine Ketones TRACE H NEGATIVE Urine Nitrite NEGATIVE NEGATIVE Urine Bilirubin NEGATIVE NEGATIVE Urine Urobilinogen 0.2 < = 1.0 MG/DL Urine Leukocyte Esterase NEGATIVE NEGATIVE Urine RBC (Auto) NEGATIVE NEGATIVE Urine RBC NONE /HPF Urine WBC 0-2 /HPF Urine Squamous Epithelial Cells 2-5 /HPF Urine Crystals NONE /LPF Urine Bacteria NEGATIVE /HPF Urine Casts NONE /LPF Urine Mucus SMALL H /LPF Urine Culture Indicated NO Influenza Type A Antigen NEGATIVE NEGATIVE Influenza Type B Antigen NEGATIVE NEGATIVE (VARSHA JAIME DO) Vital Signs/I&O 04/23/21 04/23/21 16:56 19:30 Temp 36.1 36.3 Pulse 77 68 Resp 18 16 B/P (MAP) 175/75 (108) 135/74 Pulse Ox 99 98 O2 Delivery Room Air Room Air 04/24/21 00:00 Intake Total 1025 ml Balance 1025 ml (VARSHA JAIME ) Blood Pressure Mean: 108 Progress Progress Note : Time: 17:00 Progress Note Patient seen and evaluated, will give 1 L per IV of normal saline, check labs and CT of abdomen and pelvis. 1800 potassium 2.8, will give IV 10 mEq. Patient had 1 small stool, and attempted to obtain stool sample, however too much toilet tissue was used and not enough stool was obtained for lab. Will cancel stool studies. Flu negative. 1850 patient reports improvement of symptoms. Discharge instructions and return precautions reviewed with her. (KAROL SHARMA) Diagnostic Imaging Diagonstic Imaging: Xray Comments NAME: REVA FRANCO [facility] REC#: [id number] PT STATUS: REG ER : 1937 PHYSICIAN: KAROL SHARMA ADMIT DATE: 04/23/21/ER Draft Date of Exam:04/23/21 CT ABDOMEN/PELVIS WO EXAMINATION: CT abdomen and pelvis without contrast. TECHNIQUE: Multiple contiguous axial images were obtained through the abdomen and pelvis without the use of intravenous contrast. All CT scans use one or more of the following dose optimizing techniques: automated exposure control, MA and/or KvP adjustment based on patient size and exam type or iterative reconstruction. HISTORY: Abd pain, vomiting and diarrhea 8 days. COMPARISON: None available. FINDINGS: Lung bases: The lung bases are clear. Solid organs: The liver is normal. The gallbladder is surgically absent. There is intrahepatic and extrahepatic biliary ductal dilatation which may be secondary to reservoir effect from prior cholecystectomy. Pancreas is normal. Spleen is normal. Adrenal glands are normal. The kidneys are normal without visualized calculus or hydronephrosis. Bowel: The stomach and small bowel are normal without obstruction. Wall thickening and fluid seen throughout the colon greatest in the right hemicolon. The appendix is normal. There is scattered colonic diverticulosis. Peritoneum: There is no intraperitoneal free fluid or free air. No suspicious lymphadenopathy. Vasculature: Calcification of the aorta without aneurysm. Musculoskeletal: No suspicious osseous lesion or compression fracture. Pelvis: The uterus is surgically absent. No adnexal mass. The urinary bladder is normal. IMPRESSION: Wall thickening of the right hemicolon with fluid seen throughout the colon. This finding can be seen with infectious or inflammatory colitis. Dictated on workstation # [id number] Dict: 04/23/211819 Trans: 04/23/211824 [facility] [id number] Interpreted by: JACQUELYN KEITA DO Electronically signed by: Reviewed: Reviewed by Me (KAROL SHARMA) Departure Impression Primary Impression: Gastroenteritis Additional Impressions: Colitis Vomiting Qualified Codes: R11.2 - Nausea with vomiting, unspecified Diarrhea Qualified Codes: R19.7 - Diarrhea, unspecified Disposition: 01 HOME, SELF-CARE Condition: Improved Departure-Patient Inst. Decision time for Depature: 18:50 (KAROL SHARMA) Referrals: NO,LOCAL PHYSICIAN (PCP/Family) Primary Care Physician Patient Instructions: Gastritis (DC), Colitis (DC) Add. Discharge Instructions: Increase fluid intake, adhere to a clear liquid diet for the next 4 to 6 hours and then bland food as tolerated. Take the Cipro as prescribed. Use the Zofran every 6 hours as needed for nausea or vomiting. Follow-up with your family doctor if symptoms are not improving or worsen. Return to the emergency department for new, urgent healthcare needs. All discharge instructions reviewed with patient and/or family. Voiced understanding. Scripts Ondansetron (Ondansetron Odt) 4 Mg Tab.rapdis 4 MG PO Q6H PRN for NAUSEA/VOMITING, #12 TAB 0 Refills Prov: KAROL SHARMA 04/23/21 Ciprofloxacin HCl (Cipro) 250 Mg Tablet 250 MG PO BID, #14 TAB 0 Refills Prov: KAROL SHARMA 04/23/21 ATTENDING PHYSICIAN NOTE: I WAS PHYSICALLY PRESENT ER PHYSICIAN WHEN THIS PATIENT WAS IN ER, BUT I WAS NOT INVOLVED IN ANY DECISION MAKING OR ANY CARE OF THIS PATIENT. (VARSHA JAIME DO) KAROL SHARMA Apr 23, 2021 18:25 VARSHA JAIME DO Apr 24, 2021 03:04
[2021-04-23] MEDS ORDERED: POTASSIUM CL 10MEQ/50ML IVPB 50 ML IV STA (18:45)
[2021-04-23] MEDS ORDERED: RX-ONDANSETRON 4 MG ODT (ZOFRAN) PPK #4 PO STA (18:58)
[2021-04-23] MEDS ORDERED: CIPROFLOXACIN 500 MG (CIPRO) TABLET PO STA (18:58)
[2021-04-23] MEDS ORDERED: CIPR-226 PO (19:26)
[2021-04-23] MEDS ORDERED: ONDA4TAB11 PO (19:26)
[2021-04-23 19:30] VITALS: BP 135/74
== END 2021-04-23 19:37 | disposition home or self-care (01) ==
LOC: EDUNIT# 16:10 → ER 16:19
DX: K52.9 Noninfective gastroenteritis and colitis, unspecified (principal); I10 Essential (primary) hypertension; K21.9 Gastro-esophageal reflux disease without esophagitis; Z79.899 Other long term (current) drug therapy; Z20.822 Contact with and (suspected) exposure to COVID-19
CPT/HCPCS: 36415; 74176; 80053; 81000; 82150; 83690; 85025; 87635; 87804

== ENCOUNTER 2021-04-26 16:20 | Emergency (ER) | payer MEDICARE ==
[~2021-04-26] VITALS: Ht 157 cm; Wt 45.3 kg
[~2021-04-26 16:20] MED LIST changes: +CIPR-226 PO
--- NOTE | 2021-04-26 16:57 | ED Abdominal Pain ---
General Chief Complaint: Abdominal/GI Problems Stated Complaint: STOMACH PAIN Nursing Triage Note: Pt to ED c/o abd pain/nausea. Was seen and tx in this ED on sunday, states she has not gotten better. Has not got prescriptions filled d/t problem with insurance. Source of Information: Patient Exam Limitations: No Limitations (ANTONIO INGRAM) History of Present Illness Date Seen by Provider: Apr 26, 2021 Time Seen by Provider: 16:55 Initial Comments Patient is a 85-year-old female presents ED with generalized abdominal discomfort. Symptoms over the past 11 days. Reports generalized abdominal bloating, cramping with intermittent nausea vomiting diarrhea. Denies any blood or mucus in her stool. Last time she vomited was early this morning. Decreased appetite. Decreased urination. Concerning for dehydration. Was seen here this previous Sunday discharged with Cipro but has only taken a few days worth. Diagnosed with colitis. No history inflammatory bowel disease. No recent antibiotic use previously to the Cipro. Was not able to get the Zofran secondary to insurance. No chest pain, cough, fever, headache, dizziness. She was found to be dehydrated here with IV supplementation. (ANTONIO INGRAM) Allergies and Home Medications Allergies Coded Allergies: codeine (Verified Allergy, Unknown, 11/28/18) sulfamethoxazole (Verified Allergy, Unknown, 11/28/18) tramadol (Verified Allergy, Unknown, 11/28/18) trimethoprim (Verified Allergy, Unknown, 11/28/18) Uncoded Allergies: IV CONTRAST (Allergy, Unknown, 11/28/18) Patient Home Medication List Home Medication List Reviewed: Yes (ANTONIO INGRAM) Amlodipine Besylate (Amlodipine Besylate) 10 Mg Tablet, (Reported) Entered as Reported by: MATTHEW FARRIS on 11/28/181806 Cefdinir (Cefdinir) 300 Mg Capsule, 300 MG PO BID Prescribed by: VARSHA JAIME on 11/28/181925 Cetirizine HCl (Cetirizine HCl) 10 Mg Tablet, (Reported) Entered as Reported by: MATTHEW FARRIS on 11/28/181806 Ciprofloxacin HCl (Cipro) 250 Mg Tablet, 250 MG PO BID Prescribed by: KAROL SHARMA on 04/23/211925 Esomeprazole Magnesium (Esomeprazole Magnesium) 40 Mg Capsule., (Reported) Entered as Reported by: MATTHEW FARRIS on 11/28/181806 Fluticasone Propionate (Fluticasone Propionate) 16 Gm [place].susp, (Reported) Entered as Reported by: MATTHEW FARRIS on 11/28/181806 Hydrocodone/Acetaminophen (Hydrocodone-Acetamin 5-325 mg) 1 Each Tablet, 1 TAB PO Q4H PRN for PAIN-MODERATE (5-7) Prescribed by: SANDOVAL SALAZAR on 02/13/21 151 Lorazepam (Lorazepam) 0.5 Mg Tablet, (Reported) Entered as Reported by: MATTHEW FARRIS on 11/28/181806 Montelukast Sodium (Montelukast Sodium) 10 Mg Tablet, (Reported) Entered as Reported by: MATTHEW FARRIS on 11/28/181806 Ondansetron (Ondansetron Odt) 8 Mg Tab.rapdis, 8 MG PO Q6H Prescribed by: VARSHA JAIME on 11/28/181925 Ondansetron (Ondansetron Odt) 4 Mg Tab.rapdis, 4 MG PO TID Prescribed by: SANDOVAL SALAZAR on 02/13/21 194 Ondansetron (Ondansetron Odt) 4 Mg Tab.rapdis, 4 MG PO Q6H PRN for NAUSEA/VOMITING Prescribed by: KAROL SHARMA on 04/23/211925 Ondansetron (Ondansetron Odt) 4 Mg Tab.rapdis, 4 MG PO Q4H Prescribed by: SANDOVAL SALAZAR on 04/26/211914 Ondansetron HCl (Ondansetron HCl) 8 Mg Tablet, (Reported) Entered as Reported by: MATTHEW FARRIS on 11/28/181806 Promethazine HCl (Promethazine Tablet) 25 Mg Tablet, 25 MG PO Q6H PRN for NAUSEA/VOMITING Prescribed by: SANDOVAL SALAZAR on 04/26/211914 Review of Systems Review of Systems Constitutional: No chills, No fever; malaise, weakness EENTM: No Blurred Vision, No Eye Pain Respiratory: Denies Cough, Denies SOA With Exertion, Denies SOA at Rest Cardiovascular: Denies Chest Pain, Denies Edema Gastrointestinal: Abdominal Pain; Denies Blood Streaked Stools; Diarrhea, Nausea, Vomiting Genitourinary: Denies Incontinence, Denies Pain Musculoskeletal: No joint pain Skin: No change in color, No change in hair/nails (ANTONIO INGRAM) All Other Systems Reviewed Negative Unless Noted: Yes (ANTONIO INGRAM) Past Wdtgveo-Zdydxd-Dvjwor Hx Patient Social History Tobacco Use?: Yes Tobacco type used: Cigarettes Smoking Status: Current Everyday Smoker Alcohol Use?: Yes Alcohol Frequency: Daily (ANTONIO INGRAM) Immunizations Up To Date Tetanus Booster (TDap): Unknown Influenza Vaccine Up-to-Date: No; Not Current First/Initial COVID19 Vaccinat: MAY 2020 Second COVID19 Vaccination Fermín: FEB 07 2021 Third COVID19 Vaccination Date: FEB 07 2021 (ANTONIO INGRAM) Seasonal Allergies Seasonal Allergies: No (ANTONIO INGRAM) Past Medical History Surgeries: Yes (LEFT HIP; HYST; CATARACTS) Eye Surgery, Gallbladder, Hysterectomy, Orthopedic, Tonsillectomy Respiratory: No Cardiac: Yes Hypertension Neurological: No [employer] History: Hysterectomy Genitourinary: No Gastrointestinal: Yes Gastroesophageal Reflux, Irritable Bowel Musculoskeletal: No Endocrine: No HEENT: No Cancer: No Psychosocial: Yes Anxiety Integumentary: No (ANTONIO INGRAM) Physical Exam Vital Signs Vital Signs - First Documented 04/26/21 16:35 Temp 35.9 Pulse 74 Resp 17 B/P (MAP) 139/64 (89) Pulse Ox 96 O2 Delivery Room Air (DIMITRI KLINE MD) Vital Signs Capillary Refill : Less Than 3 Seconds (ANTONIO INGRAM) Height/Weight/BMI Height: '" Weight: lbs. oz. kg; 18.00 BMI Method: General Appearance: WD/WN, no apparent distress HEENT: PERRL/EOMI, normal ENT inspection, TMs normal Neck: non-tender, supple, normal inspection Respiratory: chest non-tender, normal breath sounds, no respiratory distress Cardiovascular: regular rate, rhythm, no edema, no gallop, no JVD Gastrointestinal: normal bowel sounds, soft, no organomegaly, tenderness (Diffuse) Extremities: normal range of motion, non-tender, normal inspection, no pedal edema, no calf tenderness Back: normal inspection, no CVA tenderness (ANTONIO INGRAM) Progress/Results/Core Measures Results/Orders Lab Results Laboratory Tests Test 04/26/21 17:11 04/26/21 17:54 Range/Units White Blood Count 7.1 4.3-11.0 10^3/uL Red Blood Count 4.50 3.80-5.11 10^6/uL Hemoglobin 13.6 11.5-16.0 g/dL Hematocrit 40 35-52 % Mean Corpuscular Volume 90 80-99 fL Mean Corpuscular Hemoglobin 30 25-34 pg Mean Corpuscular Hemoglobin Concent 34 32-36 g/dL Red Cell Distribution Width 12.6 10.0-14.5 % Platelet Count 368 130-400 10^3/uL Mean Platelet Volume 10.9 9.0-12.2 fL Immature Granulocyte % (Auto) 0 % Neutrophils (%) (Auto) 70 42-75 % Lymphocytes (%) (Auto) 19 12-44 % Monocytes (%) (Auto) 9 0-12 % Eosinophils (%) (Auto) 1 0-10 % Basophils (%) (Auto) 1 0-10 % Neutrophils # (Auto) 5.0 1.8-7.8 10^3/uL Lymphocytes # (Auto) 1.3 1.0-4.0 10^3/uL Monocytes # (Auto) 0.6 0.0-1.0 10^3/uL Eosinophils # (Auto) 0.1 0.0-0.3 10^3/uL Basophils # (Auto) 0.0 0.0-0.1 10^3/uL Immature Granulocyte # (Auto) 0.0 0.0-0.1 10^3/uL Sodium Level 136 135-145 MMOL/L Potassium Level 3.0 L 3.6-5.0 MMOL/L Chloride Level 93 L 98-107 MMOL/L Carbon Dioxide Level 28 21-32 MMOL/L Anion Gap 15 H 5-14 MMOL/L Blood Urea Nitrogen 4 L 7-18 MG/DL Creatinine 0.70 0.60-1.30 MG/DL Estimat Glomerular Filtration Rate 86 BUN/Creatinine Ratio 6 Glucose Level 103 70-105 MG/DL Calcium Level 9.6 8.5-10.1 MG/DL Corrected Calcium 9.8 8.5-10.1 MG/DL Magnesium Level 1.5 L 1.6-2.4 MG/DL Total Bilirubin 0.4 0.1-1.0 MG/DL Aspartate Amino Transf (AST/SGOT) 14 5-34 U/L Alanine Aminotransferase (ALT/SGPT) 12 0-55 U/L Alkaline Phosphatase 96 40-136 U/L Total Protein 6.8 6.4-8.2 GM/DL Albumin 3.7 3.2-4.5 GM/DL Lipase 10 8-78 U/L Urine Color YELLOW Urine Clarity CLEAR Urine pH 7.0 5-9 Urine Specific [place] <=1.005 1.016-1.022 Urine Protein NEGATIVE NEGATIVE Urine Glucose (UA) NEGATIVE NEGATIVE Urine Ketones NEGATIVE NEGATIVE Urine Nitrite NEGATIVE NEGATIVE Urine Bilirubin NEGATIVE NEGATIVE Urine Urobilinogen 0.2 < = 1.0 MG/DL Urine Leukocyte Esterase NEGATIVE NEGATIVE Urine RBC (Auto) NEGATIVE NEGATIVE Urine RBC NONE /HPF Urine WBC RARE /HPF Urine Squamous Epithelial Cells 2-5 /HPF Urine Crystals NONE /LPF Urine Bacteria TRACE /HPF Urine Casts NONE /LPF Urine Mucus NEGATIVE /LPF Urine Yeast FEW H /HPF Urine Culture Indicated NO (DIMITRI KLINE MD) Micro Results Microbiology 04/26/21 C. difficile GDH Antigen & Toxins - Final, Resulted 04/26/21 Stool Culture, Resulted Pending (DIMITRI KLINE MD) Vital Signs/I&O 04/26/21 04/26/21 16:35 19:29 Temp 35.9 Pulse 74 Resp 17 16 B/P (MAP) 139/64 (89) 130/74 Pulse Ox 96 98 O2 Delivery Room Air Room Air (DIMITRI KLINE MD) Blood Pressure Mean: 89 Departure Communication (Admissions) Patient has been ongoing abdominal discomfort with diarrhea and some vomiting over the past 11 days. History of diverticulitis. Patient Was seen here day had CT of the pelvis concerning for colitis. She had normal white blood count then similar results today with a potassium of 3.0. Was given full liter fluid with Zofran with improvement. IV pain medication. Was given IV 20 mEq of potassium. Was eating at bedside without any difficulties. Urinalysis negative for infection. She does not appear septic or toxic. Due to recent negative CT scan imaging was held at this time. Similar type pain. Negative for C. difficile. Stool culture pending. I recommend continue with her Cipro. She was not able to get the nausea medication which seemed to help. Will discharge with Zofran and Phenergan. provided GI outpatient follow-up. She would likely need further evaluation with colonoscopy. Denies of any dark tarry stool. Discussed Mylanta, Pepto-Bismol for abdominal discomfort. Discussed bland diet. She had no previous antibiotics before symptoms started. No recent travels or change in foods. No history inflammatory bowel disease. Discussed probiotics. The importance of hydration. Tolerating p.o. fluids here. Return precaution were discussed with patient. Normal kidney function, liver function pancreatic function. Magnesium 1.5 was given oral magnesium oxide with the potassium. Likely secondary to GI loss. Recommend electrolytes (ANTONIO INGRAM) Impression Primary Impression: Abdominal pain Disposition: HOME, SELF-CARE Condition: Stable Departure-Patient Inst. Decision time for Depature: 19:13 (ANTONIO INGRAM) Referrals: [facility],LOCAL PHYSICIAN (PCP) Primary Care Physician Patient Instructions: Abdominal Pain, Adult ED Scripts Ondansetron (Ondansetron Odt) 4 Mg Tab.rapdis 4 MG PO Q4H, #10 TAB Prov: ANTONIO INGRAM 04/26/21 Promethazine HCl (Promethazine Tablet) 25 Mg Tablet 25 MG PO Q6H PRN for NAUSEA/VOMITING, #10 TAB Prov: ANTONIO INGRAM 04/26/21 ATTENDING PHYSICIAN NOTE: I was physically present as attending physician in the emergency department during the care of this patient, but I was not directly involved in the decision making or delivery of care for this patient. (DIMITRI KLINE MD) ANTONIO INGRAM Apr 26, 2021 16:57 DIMITRI KLINE MD Apr 28, 2021 03:00
[2021-04-26] MEDS ORDERED: NS IV 1000 ML 1,000 ML IV ONE (17:00)
[2021-04-26] MEDS ORDERED: ONDANSETRON 4 MG/2 ML (SDV) Z0FRAN IVP ONE (17:00)
[2021-04-26 17:28] LABS: BASOPHILS % (AUTO) 1 % (0-10); EOSINOPHILS # (AUTO) 0.1 10^3/uL (0.0-0.3); EOSINOPHILS % (AUTO) 1 % (0-10); HEMATOCRIT 40 % (35-52); HEMOGLOBIN 13.6 g/dL (11.5-16.0); LYMPHOCYTES # (AUTO) 1.3 10^3/uL (1.0-4.0); LYMPHOCYTES % (AUTO) 19 % (12-44); MEAN CORPUSCULAR HEMOGLOBIN 30 pg (25-34); MEAN CORPUSCULAR HGB CONC 34 g/dL (32-36); MEAN CORPUSCULAR VOLUME 90 fL (80-99); MEAN PLATELET VOLUME 10.9 fL (9.0-12.2); MONOCYTES # (AUTO) 0.6 10^3/uL (0.0-1.0); MONOCYTES % (AUTO) 9 % (0-12); NEUTROPHILS % (AUTO) 70 % (42-75); PLATELET COUNT 368 10^3/uL (130-400); WHITE BLOOD COUNT 7.1 10^3/uL (4.3-11.0)
[2021-04-26 17:37] LABS: ALBUMIN 3.7 GM/DL (3.2-4.5)
[2021-04-26 17:38] LABS: CALCIUM 9.6 MG/DL (8.5-10.1)
[2021-04-26 17:40] LABS: TOTAL PROTEIN 6.8 GM/DL (6.4-8.2)
[2021-04-26 17:41] LABS: BILIRUBIN,TOTAL 0.4 MG/DL (0.1-1.0)
[2021-04-26 17:43] LABS: CREATININE SERUM 0.7 MG/DL (0.60-1.30)
[2021-04-26 17:46] LABS: MAGNESIUM 1.5 MG/DL (1.6-2.4)
[2021-04-26] MEDS ORDERED: POTASSIUM CL 10MEQ/50ML IVPB 50 ML IV STA (17:47)
[2021-04-26 17:59] LABS: BILIRUBIN,URINE NEGATIVE (NEGATIVE); CLARITY,URINE CLEAR; COLOR,URINE YELLOW; GLUCOSE, URINE (UA) NEGATIVE (NEGATIVE); KETONES,URINE NEGATIVE (NEGATIVE); LEUKOCYTE ESTERASE ,URINE NEGATIVE (NEGATIVE); NITRITE,URINE NEGATIVE (NEGATIVE); PROTEIN,URINE NEGATIVE (NEGATIVE)
[2021-04-26] MEDS ORDERED: MAGNESIUM OXIDE (MAG-OX)400 MG TAB PO ONE (18:00)
[2021-04-26] MEDS ORDERED: fentaNYL INJ 100 MCG/2 ML AMP IVP STA (18:04)
[2021-04-26 18:08] LABS: BACTERIA,URINE TRACE /HPF; WBC,URINE RARE /HPF; YEAST,URINE FEW /HPF
[2021-04-26] MEDS ORDERED: ONDA4TAB11 PO (19:15)
[2021-04-26] MEDS ORDERED: PROM25TA14 PO (19:15)
[2021-04-26 19:29] VITALS: BP 130/74
== END 2021-04-26 19:29 | disposition home or self-care (01) ==
LOC: EDUNIT# 16:20 → ER 16:23
DX: R10.84 Generalized abdominal pain (principal); R11.2 Nausea with vomiting, unspecified; R19.7 Diarrhea, unspecified; I10 Essential (primary) hypertension; K21.9 Gastro-esophageal reflux disease without esophagitis; F17.210 Nicotine dependence, cigarettes, uncomplicated; Z79.899 Other long term (current) drug therapy
CPT/HCPCS: 36415; 80053; 81000; 83690; 83735; 85025; 87015; 87045; 87046; 87324; 87328; 87449; 87899

== ENCOUNTER 2022-06-20 11:39 | Inpatient (IN) | payer MEDICARE, MEDICAID ==
[~2022-06-20] VITALS: Ht 157.4 cm; Wt 43.3 kg
[~2022-06-20 11:39] MED LIST changes: -AMLO-251; +AMLO-251 PO; -ESOM40CA52; +ESOM40CA52 PO; +PROM25TA14 PO
--- NOTE | 2022-06-20 11:57 | ED Lower Extremity ---
General Chief Complaint: Lower Extremity Stated Complaint: FALL | LT KNEE PAIN Nursing Triage Note: PT TO [facility] 8 BY [facility] WITH C/O L KNEE PAIN AFTER FALLING FROM STANDING UP FROM THE COUCH. PT REPORTS SWELLING TO KNEECAP Source: patient, EMS Exam Limitations: no limitations History of Present Illness Date Seen by Provider: Jun 20, 2022 Time Seen by Provider: 11:43 Initial Comments 86yoF coming in after she had a fall over an hour prior to arrival. She slipped with her socks on the floor. She landed on her left knee at that time. She did hit her head but no LOC, light headedness, headache, confusion, or any other concerns. She is having left knee pain that is constant, worse with movement, better with rest. She does not take blood thinners Allergies and Home Medications Allergies Coded Allergies: codeine (Verified Allergy, Unknown, 11/28/18) sulfamethoxazole (Verified Allergy, Unknown, 11/28/18) tramadol (Verified Allergy, Unknown, 11/28/18) trimethoprim (Verified Allergy, Unknown, 11/28/18) Uncoded Allergies: IV CONTRAST (Allergy, Unknown, 11/28/18) Patient Home Medication List Home Medication List Reviewed: Yes Amlodipine Besylate (Amlodipine Besylate) 10 Mg Tablet, (Reported) Entered as Reported by: MATTHEW FARRIS on 11/28/181806 Cefdinir (Cefdinir) 300 Mg Capsule, 300 MG PO BID Prescribed by: VARSHA JAIME on 11/28/181925 Cetirizine HCl (Cetirizine HCl) 10 Mg Tablet, (Reported) Entered as Reported by: MATTHEW FARRIS on 11/28/181806 Ciprofloxacin HCl (Cipro) 250 Mg Tablet, 250 MG PO BID Prescribed by: KAROL SHARMA on 04/23/211925 Esomeprazole Magnesium (Esomeprazole Magnesium) 40 Mg Capsule.dr, (Reported) Entered as Reported by: MATTHEW FARRIS on 11/28/181806 Fluticasone Propionate (Fluticasone Propionate) 16 Gm [place].susp, (Reported) Entered as Reported by: MATTHEW FARRIS on 11/28/181806 Hydrocodone/Acetaminophen (Hydrocodone-Acetamin 5-325 mg) 1 Each Tablet, 1 TAB PO Q4H PRN for PAIN-MODERATE (5-7) Prescribed by: SANDOVAL SALAZAR on 02/13/21 1514 Lorazepam (Lorazepam) 0.5 Mg Tablet, (Reported) Entered as Reported by: MATTHEW FARRIS on 11/28/181806 Montelukast Sodium (Montelukast Sodium) 10 Mg Tablet, (Reported) Entered as Reported by: MATTHEW FARRIS on 11/28/181806 Ondansetron (Ondansetron Odt) 8 Mg Tab.rapdis, 8 MG PO Q6H Prescribed by: VARSHA JAIME on 11/28/181925 Ondansetron (Ondansetron Odt) 4 Mg Tab.rapdis, 4 MG PO TID Prescribed by: SANDOVAL SALAZAR on 02/13/211947 Ondansetron (Ondansetron Odt) 4 Mg Tab.rapdis, 4 MG PO Q6H PRN for NAUSEA/VOMITING Prescribed by: KAROL SHARMA on 04/23/211925 Ondansetron (Ondansetron Odt) 4 Mg Tab.rapdis, 4 MG PO Q4H Prescribed by: SANDOVAL SALAZAR on 04/26/211914 Ondansetron HCl (Ondansetron HCl) 8 Mg Tablet, (Reported) Entered as Reported by: MATTHEW FARRIS on 11/28/181806 Promethazine HCl (Promethazine Tablet) 25 Mg Tablet, 25 MG PO Q6H PRN for NAUSEA/VOMITING Prescribed by: SANDOVAL SALAZAR on 04/26/211914 Review of Systems Constitutional: No fever EENTM: no symptoms reported Respiratory: no symptoms reported Cardiovascular: no symptoms reported Gastrointestinal: no symptoms reported Genitourinary: no symptoms reported Musculoskeletal: see HPI Skin: no symptoms reported Psychiatric/Neurological: No Symptoms Reported Past Nnffcba-Djugtb-Xduqpv Hx Patient Social History Tobacco Use?: Yes Substance use?: No Alcohol Use?: Yes Alcohol Frequency: Daily Pt feels they are or have been: No Immunizations Up To Date Tetanus Booster (TDap): Unknown Influenza Vaccine Up-to-Date: No; Not Current First/Initial COVID19 Vaccinat: MAY 2020 Second COVID19 Vaccination Fermín: FEB 07 2021 Third COVID19 Vaccination Date: FEB 07 2021 Seasonal Allergies Seasonal Allergies: No Past Medical History Surgery/Hospitalization HX: hip replacement Surgeries: Yes (LEFT HIP; HYST; CATARACTS) Eye Surgery, Gallbladder, Hysterectomy, Orthopedic, Tonsillectomy Respiratory: No Cardiac: Yes Hypertension Neurological: No [employer]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 oz. kg; 18.00 BMI Method: General Appearance: WD/WN, no apparent distress HEENT: PERRL/EOMI, normal ENT inspection, pharynx normal Neck: non-tender, full range of motion, supple, normal inspection Cardiovascular: regular rate, rhythm, no edema, no murmur Respiratory: chest non-tender, lungs clear, normal breath sounds, no respiratory distress, no accessory muscle use Gastrointestinal: normal bowel sounds, non tender, soft; No distended, No guarding, No rebound Back: normal inspection, no CVA tenderness Hips: bilateral hip non-tender, bilateral hip normal inspection, bilateral hip normal range of motion, bilateral hip no evidence of injury Legs: bilateral leg non-tender, bilateral leg normal inspection, bilateral leg normal range of motion, bilateral leg no evidence of injury Knees: left knee non-tender, left knee normal inspection; right knee bone tenderness, right knee pain, right knee soft tissue tenderness, right knee swelling Ankles: bilateral ankle non-tender, bilateral ankle normal inspection, bilate ral ankle normal range of motion, bilateral ankle no evidence of injury Neurologic/Tendon: normal motor functions Neurologic/Psychiatric: no motor/sensory deficits, alert, normal mood/affect, oriented x 3 Skin: normal color, warm/dry Progress/Results/Core Measures Results/Orders My Orders Orders - ANTONIO WEINER MD Knee, Left, 3 Views (06/20/22 12:00) Morphine Injection (Morphine Injection (06/20/22 12:00) Ondansetron Oral Dissolve Tab (Zofran (06/20/22 12:00) Ct Head/Cervical Spine Wo (06/20/22 12:00) Morphine Injection (Morphine Injection (06/20/22 13:00) Ct Extremity Lower Left Wo (06/20/22 13:34) Medications Given in ED Current Medications Medications Dose Ordered Sig/Karri Route Start Time Stop Time Status Last Admin Dose Admin Ondansetron HCl 4 mg ONCE ONCE PO 06/20/22 12:00 06/20/22 12:03 DC 06/20/22 12:16 4 MG Vital Signs/I&O 06/20/22 06/20/22 11:44 12:28 Temp 35.8 Pulse 63 66 Resp 14 18 B/P (MAP) 156/98 (117) 169/85 (113) Pulse Ox 98 O2 Delivery Room Air Blood Pressure Mean: 117 Progress Progress Note : Progress Note 86-year-old female with above history coming in due to left knee pain after falling. ABCs were intact and vitals were stable on presentation. Physical exam with a significant effusion to that left knee and she is unable to extend it. X-ray negative for acute fracture dislocation on my interpretation. Given significant pain, CT of the knee was then ordered and concerning for medial fracture of her femur going intra-articularly that is nondisplaced. I contacted Dr. Butterfield who states this can be treated nonoperatively, place her in a knee immobilizer or hinged knee brace, and she is to be nonweightbearing. I contacted Dr. Avila who admit the patient under inpatient status for uncontrolled pain for further evaluation and management. CT head and cervical spine also ordered and were negative. Diagnostic Imaging Diagonstic Imaging: CT (head/cspine/left knee) Comments [facility] [place], [place] NAME: REVA FRANCO [facility] REC#: [id number] PT STATUS: REG ER : 1935 PHYSICIAN: ANTONIO WEINER MD ADMIT DATE: 06/20/22/ER Draft Date of Exam:06/20/22 CT HEAD/CERVICAL SPINE WO PROCEDURE: CT head and CT cervical spine without contrast. TECHNIQUE: Multiple contiguous axial images were obtained through the brain and cervical spine without the use of intravenous contrast. Sagittal and coronal reformations through the cervical spine were then performed. Auto Exposure Controls were utilized during the CT exam to meet ALARA standards for radiation dose reduction. INDICATION: Trauma. COMPARISON: None. FINDINGS: CT HEAD: Moderate generalized parenchymal volume loss. Chronic lacunar infarct versus prominent perivascular space in the left basal ganglia. No intracranial hemorrhage, mass effect, hydrocephalus, or extra-axial fluid collections. Osseous structures are intact. Mucosal thickening in the right sphenoid sinus. The mastoids are clear. CT CERVICAL SPINE: Grade 1 anterolisthesis of C4 on C5. Vahdwwsh-zv-ffldbbis degenerative endplate changes at C5-C7. Vertebral body heights are preserved. No fractures. Paravertebral soft tissues are unremarkable. Emphysematous changes in the lung apices. IMPRESSION: No acute intracranial or cervical spine CT findings. Dictated on workstation # [id number] Dict: 06/20/22 1333 Trans: 06/20/221337 [id number] Interpreted by: KIKE CASTELLON MD Electronically signed by: [facility] [place], [place] NAME: REVA FRANCO [facility] REC#: [id number] PT STATUS: REG ER : 1935 PHYSICIAN: ANTONIO WEINER MD ADMIT DATE: 06/20/22/ER Draft Date of Exam:06/20/22 CT EXTREMITY LOWER LEFT WO PROCEDURE: CT left lower extremity without contrast. TECHNIQUE: Multiple contiguous axial images were obtained through the left lower extremity without the use of intravenous contrast. Sagittal and coronal reformations were then performed. Auto Exposure Controls were utilized during the CT exam to meet ALARA standards for radiation dose reduction. INDICATION: Left knee joint effusion, concern for fracture. COMPARISON: Radiographs from 06/20/2022. FINDINGS: Bone density is diffusely low. There is a nondisplaced fracture of the distal left femur along the posterior cortex, extending into the intercondylar notch. No other fractures are seen about the left knee. Alignment appears normal. There is a very large lipohemarthrosis. There is generalized muscular atrophy. The menisci and ligaments are not well evaluated by CT. IMPRESSION: 1. Nondisplaced intra-articular fracture of the distal left femur. 2. Large left knee lipohemarthrosis. Dictated on workstation # [id number] Dict: 06/20/22 1412 Trans: 06/20/22 1417 [id number] [id number] Interpreted by: JACQUELINE LAGUNA MD Electronically signed by: Departure Impression Primary Impression: Femur fracture, left Qualified Codes: S72.435A - Nondisplaced fracture of medial condyle of left femur, initial encounter for closed fracture Disposition: ADMITTED INPATIENT Condition: Stable Admissions Decision to Admit Reason: Admit from ER (General) Decision to Admit/Date: Jun 20, 2022 Time/Decision to Admit Time: 14:50 Departure-Patient Inst. Referrals: NO,LOCAL PHYSICIAN (PCP/Family) Primary Care Physician ANTONIO WEINER MD Jun 20, 2022 11:57
[2022-06-20] MEDS ORDERED: morphine INJ 10 MG/ML 1ML (SYR OR VIAL) IM STA ×2 (12:00→13:00)
[2022-06-20] MEDS ORDERED: ONDANSETRON 4 MG (ZOFRAN) ORAL DISSOLVE TAB PO ONE (12:00)
--- NOTE | 2022-06-20 13:02 | Diagnostic Imaging Report ---
KNEE, LEFT, 3 VIEWS COMPARISON: 02/13/2021 INDICATION: Left knee pain TECHNIQUE: Non-weight bearing AP, oblique, and lateral views of the left knee. FINDINGS: Large hyperdense joint effusion is present. No acute fracture is detected. Alignment is normal. IMPRESSION: 1. Large hyperdense joint effusion may be due to hemarthrosis. 2. No appreciable fracture. 3. Consider CT of the knee without contrast for more sensitive assessment of occult fracture. Dictated by: Dictated on workstation # [id number]
--- NOTE | 2022-06-20 13:39 | Diagnostic Imaging Report ---
PROCEDURE: CT head and CT cervical spine without contrast. TECHNIQUE: Multiple contiguous axial images were obtained through the brain and cervical spine without the use of intravenous contrast. Sagittal and coronal reformations through the cervical spine were then performed. Auto Exposure Controls were utilized during the CT exam to meet ALARA standards for radiation dose reduction. INDICATION: Trauma. COMPARISON: None. FINDINGS: CT HEAD: Moderate generalized parenchymal volume loss. Chronic lacunar infarct versus prominent perivascular space in the left basal ganglia. No intracranial hemorrhage, mass effect, hydrocephalus, or extra-axial fluid collections. Osseous structures are intact. Mucosal thickening in the right sphenoid sinus. The mastoids are clear. CT CERVICAL SPINE: Grade 1 anterolisthesis of C4 on C5. Fggvxgcf-rg-vguzqabm degenerative endplate changes at C5-C7. Vertebral body heights are preserved. No fractures. Paravertebral soft tissues are unremarkable. Emphysematous changes in the lung apices. IMPRESSION: No acute intracranial or cervical spine CT findings. Dictated by: Dictated on workstation # [id number]
--- NOTE | 2022-06-20 14:17 | Diagnostic Imaging Report ---
PROCEDURE: CT left lower extremity without contrast. TECHNIQUE: Multiple contiguous axial images were obtained through the left lower extremity without the use of intravenous contrast. Sagittal and coronal reformations were then performed. Auto Exposure Controls were utilized during the CT exam to meet ALARA standards for radiation dose reduction. INDICATION: Left knee joint effusion, concern for fracture. COMPARISON: Radiographs from 06/20/2022. FINDINGS: Bone density is diffusely low. There is a nondisplaced fracture of the distal left femur along the posterior cortex, extending into the intercondylar notch. No other fractures are seen about the left knee. Alignment appears normal. There is a very large lipohemarthrosis. There is generalized muscular atrophy. The menisci and ligaments are not well evaluated by CT. IMPRESSION: 1. Nondisplaced intra-articular fracture of the distal left femur. 2. Large left knee lipohemarthrosis. Dictated by: Dictated on workstation # [id number]
--- NOTE | 2022-06-20 16:35 | CONSULTATION REPORT ---
DATE OF SERVICE: 06/20/2022 REASON FOR CONSULTATION: Left distal femur fracture. HISTORY OF PRESENT ILLNESS: The patient is an 86-year-old independently living female who fell at home. She slipped on her floor. She landed on her left knee. She complains of left knee pain. Radiographs were obtained, which were negative. CT scan was obtained, which revealed a nondisplaced posterior femoral condyle fracture. On exam, left lower extremity demonstrates intact dorsiflexion and plantarflexion of the toes. Pulses are symmetric. Sensation is intact to light touch. She is tender over her distal femur with large effusion noted. CT scan was reviewed, which shows a nondisplaced posterior condyle fracture medially of the femur. IMPRESSION: Nondisplaced distal femur fracture. PLAN: We discussed options with the patient. She would like to avoid surgery. We will place in a hinged brace, but she needs to be nonweightbearing in the left lower extremity. She can work on 0-90 degrees range of motion. We will see her in followup as an outpatient. If there is any displacement, then we will plan for surgical fixation, which I discussed this possibility with the patient today. She understands. We will plan on placing her in a hinged brace tomorrow. Job ID: [id number] DocumentID: [id number] Dictated Date: 06/20/2022 16:20:36 Buckle Assembler Date: 06/20/2022 16:33:00 Dictated By: RUDY DOWNS MD
[2022-06-20 17:00] VITALS: BP 159/60
[2022-06-20] MEDS ORDERED: KETOROLAC 30 MG/ML VIAL IVP PRN (17:00)
[2022-06-20] MEDS ORDERED: PROMETHAZINE INJ 25 MG/ML (PHENERGAN) AMP IVP PRN (17:00)
[2022-06-20] MEDS ORDERED: ENOXAPARIN 40 MG/0.4 ML (LOVENOX) SYR SC SCH (17:00)
[2022-06-20] MEDS ORDERED: ONDANSETRON 4 MG/2 ML (SDV) Z0FRAN ONE (17:23)
[2022-06-20] MEDS: ONDANSETRON 4 MG/2 ML (SDV) Z0FRAN IVP PRN (17:26)
[2022-06-20] MEDS: NS IV 1000 ML 1,000 ML IV SCH (17:27)
[2022-06-20] MEDS: ENOXAPARIN INJECTION 30 MG/0.3 ML SYR SC SCH (17:27)
[2022-06-20] MEDS: KETOROLAC 15 MG/ML VIAL IV PRN ×2 (17:37→21:40)
[2022-06-20 20:17] VITALS: BP 163/75
[2022-06-20 23:30] VITALS: BP 164/89
[2022-06-21] MEDS: ONDANSETRON 4 MG/2 ML (SDV) Z0FRAN IVP PRN (00:31)
[2022-06-21] MEDS: morphine INJ 4 MG/ML 1 ML (VIAL/SYRINGE) IV PRN ×6 (01:57→21:53)
[2022-06-21 03:24] VITALS: BP 174/69
[2022-06-21] MEDS: KETOROLAC 15 MG/ML VIAL IV PRN (04:17)
[2022-06-21 05:42] LABS: BASOPHILS % (AUTO) 0 % (0-10); EOSINOPHILS % (AUTO) 0 % (0-10); HEMATOCRIT 36 % (35-52); HEMOGLOBIN 12.3 g/dL (11.5-16.0); LYMPHOCYTES # (AUTO) 1.2 10^3/uL (1.0-4.0); LYMPHOCYTES % (AUTO) 16 % (12-44); MEAN CORPUSCULAR HEMOGLOBIN 30 pg (25-34); MEAN CORPUSCULAR HGB CONC 34 g/dL (32-36); MEAN CORPUSCULAR VOLUME 87 fL (80-99); MEAN PLATELET VOLUME 10.2 fL (9.0-12.2); MONOCYTES # (AUTO) 0.6 10^3/uL (0.0-1.0); MONOCYTES % (AUTO) 8 % (0-12); NEUTROPHILS # (AUTO) 5.7 10^3/uL (1.8-7.8); NEUTROPHILS % (AUTO) 76 % (42-75); PLATELET COUNT 246 10^3/uL (130-400); WHITE BLOOD COUNT 7.6 10^3/uL (4.3-11.0)
[2022-06-21 06:07] LABS: ALBUMIN 4.2 GM/DL (3.2-4.5); BILIRUBIN,TOTAL 0.6 MG/DL (0.1-1.0); CALCIUM 9.5 MG/DL (8.5-10.1); CREATININE SERUM 0.69 MG/DL (0.60-1.30); POTASSIUM 3.7 MMOL/L (3.6-5.0); TOTAL PROTEIN 7.1 GM/DL (6.4-8.2)
[2022-06-21 07:11] VITALS: BP 190/86
[2022-06-21] MEDS: NS IV 1000 ML 1,000 ML IV SCH ×2 (11:26→23:44)
[2022-06-21 11:40] VITALS: BP 172/81
[2022-06-21] MEDS ORDERED: LORA-404 PO (11:54)
[2022-06-21] MEDS ORDERED: ACET-2267 PO (11:54)
[2022-06-21] MEDS ORDERED: ONDA-105 PO (11:54)
--- NOTE | 2022-06-21 12:02 | Progress Note ---
Standard Progress Note Progress Notes/Assess & Plan Date Seen by a Provider: Jun 21, 2022 Time Seen by a Provider: 12:01 Progress/Assessment & Plan no complaints brace in place NVI distally L distal femur fracture NWB RUDY MONTERROSO MD Jun 21, 2022 12:02
--- NOTE | 2022-06-21 15:14 | History & Physical ---
HPI History of Present Illness: 86 yo F that was living home independently when she tripped and fell on her left knee. She was found to have a non displaced fracture and was seen by ortho in the ER. She has a previous h/o hip fracture. Denies any dizziness, chest pain or shortness of breath. States that she is not sure if she has osteoporosis but she has had multiple fractures. She has been taking her blood pressure medications. She has otherwise been feeling well. Source: patient Exam Limitations: no limitations Date seen by provider: Jun 21, 2022 Time Seen by Provider: 11:45 Attending Physician Rk Lizama MD PCP Admitting Physician: Demetra Avila MD Attending Physician: Demetra Avila MD Consult Date of Admission Jun 20, 2022 at 16:04 Home Medications Home Medications Reviewed patient Home Medication Reconciliation performed by pharmacy medication reconciliations clinical office technician and/or nursing. Patients Allergies have been reviewed. Allergies Coded Allergies: codeine (Verified Allergy, Unknown, 11/28/18) sulfamethoxazole (Verified Allergy, Unknown, 11/28/18) tramadol (Verified Allergy, Unknown, 11/28/18) trimethoprim (Verified Allergy, Unknown, 11/28/18) Uncoded Allergies: IV CONTRAST (Allergy, Unknown, 11/28/18) WKD-Bcopkx-Rfziqr Hx Patient Social History Living Status: Lives in apartment independently Smoking Status: Current Everyday Smoker Recent Hopitalizations: No Alcohol Use?: Yes Tobacco type used: Cigarettes Have you traveled recently?: No Immunizations Up To Date Tetanus Booster (TDap): Unknown Influenza Vaccine Up-to-Date: No; Not Current First/Initial COVID19 Vaccinat: MAY 2020 Second COVID19 Vaccination Fermín: FEB 07 2021 Third COVID19 Vaccination Date: FEB 07 2021 Past Medical History HTN Anxiety Review of Systems (CHC) Constitutional: No chills, No fever; weakness EENTM: no symptoms reported; No mouth pain, No nose congestion, No nose pain Respiratory: no symptoms reported; No cough, No dyspnea on exertion, No short of breath Cardiovascular: no symptoms reported; No chest pain, No edema, No palpitations Gastrointestinal: no symptoms reported; No abdominal pain, No constipation, No diarrhea, No nausea, No vomiting Genitourinary: no symptoms reported; No dysuria, No frequency, No hematuria Musculoskeletal: joint pain, muscle pain Skin: no symptoms reported Psychiatric/Neurological: No Symptoms Reported; Denies Headache, Denies Weakness Reviewed Test Results Reviewed Test Results Lab Laboratory Tests Test 06/21/22 05:32 Range/Units White Blood Count 7.6 4.3-11.0 10^3/uL Red Blood Count 4.16 3.80-5.11 10^6/uL Hemoglobin 12.3 11.5-16.0 g/dL Hematocrit 36 35-52 % Mean Corpuscular Volume 87 80-99 fL Mean Corpuscular Hemoglobin 30 25-34 pg Mean Corpuscular Hemoglobin Concent 34 32-36 g/dL Red Cell Distribution Width 13.2 10.0-14.5 % Platelet Count 246 130-400 10^3/uL Mean Platelet Volume 10.2 9.0-12.2 fL Immature Granulocyte % (Auto) 0 % Neutrophils (%) (Auto) 76 H 42-75 % Lymphocytes (%) (Auto) 16 12-44 % Monocytes (%) (Auto) 8 0-12 % Eosinophils (%) (Auto) 0 0-10 % Basophils (%) (Auto) 0 0-10 % Neutrophils # (Auto) 5.7 1.8-7.8 10^3/uL Lymphocytes # (Auto) 1.2 1.0-4.0 10^3/uL Monocytes # (Auto) 0.6 0.0-1.0 10^3/uL Eosinophils # (Auto) 0.0 0.0-0.3 10^3/uL Basophils # (Auto) 0.0 0.0-0.1 10^3/uL Immature Granulocyte # (Auto) 0.0 0.0-0.1 10^3/uL Sodium Level 135 135-145 MMOL/L Potassium Level 3.7 3.6-5.0 MMOL/L Chloride Level 101 98-107 MMOL/L Carbon Dioxide Level 22 21-32 MMOL/L Anion Gap 12 5-14 MMOL/L Blood Urea Nitrogen 9 7-18 MG/DL Creatinine 0.69 0.60-1.30 MG/DL Estimat Glomerular Filtration Rate 86 BUN/Creatinine Ratio 13 Glucose Level 134 H 70-105 MG/DL Calcium Level 9.5 8.5-10.1 MG/DL Corrected Calcium 9.3 8.5-10.1 MG/DL Total Bilirubin 0.6 0.1-1.0 MG/DL Aspartate Amino Transf (AST/SGOT) 18 5-34 U/L Alanine Aminotransferase (ALT/SGPT) 16 0-55 U/L Alkaline Phosphatase 87 40-136 U/L Total Protein 7.1 6.4-8.2 GM/DL Albumin 4.2 3.2-4.5 GM/DL Physical Exam-(CHC) Physical Exam Vital Signs VS - Last 72 Hours, by Label 06/20/22 06/20/22 06/20/22 06/20/22 11:44 12:28 15:56 17:00 Temp 35.8 36.0 Pulse 63 66 85 80 Resp 14 18 18 18 B/P (MAP) 156/98 (117) 169/85 (113) 151/50 159/60 (93) Pulse Ox 98 95 96 O2 Delivery Room Air Room Air Room Air 06/20/22 06/20/22 06/20/22 06/20/22 17:00 20:00 20:17 23:30 Temp 36.3 36.2 Pulse 55 66 Resp 18 18 B/P (MAP) 163/75 (104) 164/89 (114) Pulse Ox 96 94 O2 Delivery Room Air Room Air Room Air Room Air 06/21/22 06/21/22 06/21/22 03:24 07:11 11:40 Temp 36.4 36.9 36.5 Pulse 72 67 69 Resp 18 16 20 B/P (MAP) 174/69 (104) 190/86 (120) 172/81 (111) Pulse Ox 94 92 94 O2 Delivery Room Air Room Air Room Air Capillary Refill : General Appearance: WD/WN, no apparent distress, thin HEENT: PERRL/EOMI Neck: non-tender, full range of motion, supple Respiratory: chest non-tender, lungs clear, normal breath sounds, no respiratory distress, no accessory muscle use Cardiovascular: normal peripheral pulses, regular rate, rhythm, no murmur Gastrointestinal: normal bowel sounds, non tender, soft Back: no CVA tenderness, no vertebral tenderness Extremities: other (Left leg in splint placed by Ortho) Neurologic/Psychiatric: doctor of pharmacy II-XII nml as tested, alert, oriented x 3 Skin: normal color, warm/dry Lymphatic: no adenopathy Assessment/Plan Assessment/Plan Admission Status: Inpatient Order (span 2 midnights) Reason for Inpatient Admission: need for therapy and placement as she in not safe to go home alone (1) Femur fracture, left Status: Acute Assessment & Plan: - Will f.u with Ortho in the clinic, splint in place, non weight bearing on LLE, IRF and PT orders placed, if she does not get approved will need SNF Qualifiers: Qualified Codes: S72.435A - Nondisplaced fracture of medial condyle of left femur, initial encounter for closed fracture (2) Closed femur fracture Status: Acute Qualifiers: Qualified Codes: S72.92XA - Unspecified fracture of left femur, initial encounter for closed fracture (3) HTN (hypertension) Status: Chronic Assessment & Plan: - Restarted home meds Qualifiers: Qualified Codes: I10 - Essential (primary) hypertension (4) Anxiety Status: Chronic Assessment & Plan: - Restarted home meds (5) DVT prophylaxis Status: Acute Assessment & Plan: - Started on Lovenox DEMETRA AVILA MD Jun 21, 2022 15:14
[2022-06-21] MEDS ORDERED: LORazepam 0.5 MG (ATIVAN) TABLET PO PRN (15:15)
[2022-06-21 15:47] VITALS: BP 194/86
[2022-06-21] MEDS ORDERED: amLODIPine 10 MG (NORVASC) TAB PO NR (18:00)
[2022-06-21] MEDS: ENOXAPARIN INJECTION 30 MG/0.3 ML SYR SC SCH (18:15)
[2022-06-21 20:28] VITALS: BP 182/76
[2022-06-21] MEDS: MELATONIN 3 MG TABLET PO SCH (21:53)
[2022-06-21 23:38] VITALS: BP 184/81
[2022-06-22] MEDS: morphine INJ 4 MG/ML 1 ML (VIAL/SYRINGE) IV PRN ×2 (01:54→05:30)
[2022-06-22] MEDS: ONDANSETRON 4 MG/2 ML (SDV) Z0FRAN IVP PRN ×2 (01:59→20:53)
[2022-06-22 03:12] VITALS: BP 190/86
[2022-06-22 05:32] LABS: BASOPHILS % (AUTO) 1 % (0-10); EOSINOPHILS % (AUTO) 1 % (0-10); HEMATOCRIT 35 % (35-52); HEMOGLOBIN 11.6 g/dL (11.5-16.0); LYMPHOCYTES # (AUTO) 1.8 10^3/uL (1.0-4.0); LYMPHOCYTES % (AUTO) 28 % (12-44); MEAN CORPUSCULAR HEMOGLOBIN 29 pg (25-34); MEAN CORPUSCULAR HGB CONC 33 g/dL (32-36); MEAN CORPUSCULAR VOLUME 88 fL (80-99); MEAN PLATELET VOLUME 10.8 fL (9.0-12.2); MONOCYTES # (AUTO) 0.5 10^3/uL (0.0-1.0); MONOCYTES % (AUTO) 8 % (0-12); NEUTROPHILS # (AUTO) 3.9 10^3/uL (1.8-7.8); NEUTROPHILS % (AUTO) 62 % (42-75); PLATELET COUNT 202 10^3/uL (130-400); WHITE BLOOD COUNT 6.3 10^3/uL (4.3-11.0)
[2022-06-22 05:48] LABS: ALBUMIN 3.6 GM/DL (3.2-4.5); BILIRUBIN,TOTAL 0.6 MG/DL (0.1-1.0); CALCIUM 9.3 MG/DL (8.5-10.1); CREATININE SERUM 0.66 MG/DL (0.60-1.30); POTASSIUM 3.7 MMOL/L (3.6-5.0); TOTAL PROTEIN 6.3 GM/DL (6.4-8.2)
[2022-06-22 07:58] VITALS: BP 170/79
[2022-06-22] MEDS: PANTOPRAZOLE 40 MG (PROTONIX) TAB PO SCH (08:29)
[2022-06-22] MEDS: amLODIPine 10 MG (NORVASC) TAB PO SCH (08:29)
[2022-06-22] MEDS: NS IV 1000 ML 1,000 ML IV SCH ×2 (08:33→13:04)
[2022-06-22 08:59] VITALS: BP 170/79
[2022-06-22] MEDS ORDERED: NON-FORMULARY MEDICATION 1 EA EA (Esomeprazole Magnesium 40 MG) PO SCH (09:00)
[2022-06-22] MEDS: KETOROLAC 15 MG/ML VIAL IV PRN ×2 (10:12→16:21)
--- NOTE | 2022-06-22 10:44 | Physical Therapy Evaluation ---
PT Evaluation-General Medical Diagnosis Admission Date Jun 20, 2022 at 16:04 Medical Diagnosis: left femur fracture Onset Date: Jun 20, 2022 Therapy Diagnosis Therapy Diagnosis: debility/weakness Precautions Precautions/Isolations: Standard Precautions Weight Bear Status Right Lower Extremity: Right Weight Bearing/Tolerated Left Lower Extremity: Left Non Weight Bearing locked hinged knee brace left LE Referral Physician: Austin Reason for Referral: Evaluation/Treatment Medical History Pertinent Medical History: Alcoholism Current History EMS secondary to a fall from stand (NWB left LE with locked hinged knee breace in place) Reviewed History: Yes Social History Home: Apartment Current Living Status: Alone Prior Prior Level of Function SCALE: Activities may be completed with or without assistive devices. 5-Zsowuzcatr-kqirnje completes the activity by him/herself with no assistance from a helper. 5-Set-up or Clean-up Assistance-helper sets up or cleans up; patient completes activity. [place] assists only prior to or following the activity. 4-Supervision or Touching Assistance-helper provides verbal cues and/or touching/steadying and/or contact guard assistance as patient completes activity. Assistance may be provided throughout the activity or intermittently. 3-Partial/Moderate Assistance-helper does LESS THAN HALF the effort. [place] lifts, holds or supports trunk or limbs, but provides less than half the effort. 2-Substantial/Maximal Assistance-helper does MORE THAN HALF the effort. [place] lifts or holds trunk or limbs and provides more than half the effort. 9-Sxxgejixr-sdsysn does ALL the effort. Patient does none of the effort to complete the activity. Or, the assistance of 2 or more helpers is required for the patient to complete the activity. If activity was not attempted, code reason: 7-Patient Refused. 9-Not Applicable-not attempted and the patient did not perform the activity before the current illness, exacerbation or injury. 10-Not Attempted due to Environmental Limitations-(lack of equipment, weather restraints, etc.). 88-Not Attempted due to Medical Conditions or Safety Concerns. Bed Mobility: 6 Transfers (B,C,W/C): 6 Gait: 6 Stairs: 6 Indoor Mobility (Ambulation): Independent Stairs: Independent Prior Devices Use: None PT Evaluation-Current Subjective Patient reluctantly agrees to PT. Pain Numeric Pain Scale: 10-Worst Possible Pain Location: Left Location Body Site: Knee Pain Description: Acute Objective Patient Orientation: Normal For Age Attachments: IV ROM/Strength ROM Lower Extremities left knee lock hinged brace/right LE WFL Strength Lower Extremities left LE NT/right LE 3+/5 grossly Integumentary/Posture Bladder Incontinence: Yes Posture WFL Neuromuscular (Tone, Coordination, Reflexes) grossly intact Sensory Vision: Wears Glasses Hearing: Functional Transfers Lying to Sitting/Side of Bed(Q: 4 Sit to Stand (QC): 4 Chair/Zor-rn-Klreh Xfer(QC): 4 Toilet Transfer (QC): 4 CGA for safety Gait Does the Patient Walk?: No and Walking Goal IS indicated Walk 10 feet (QC): 88 Walk 50 ft with 2 Turns(QC): 88 Walk 150 ft (QC): 88 Gait Assistive Device: FWW Comments/Gait Description able to "scoot" right LE with maintaining NWB left LE (unable to hop at this time) Balance Sitting Static: Normal Sitting Dynamic: Normal Standing Static: Fair Standing Dynamic: Fair Assessment/Needs Patient will benefit from skilled PT to address functional strength and mobility to improve current LOF. Patient does appear to self limit. Per physician, patient is NWB x 2 week then ortho will reassess left fracture healing process. Rehab Potential: Fair PT Assisted Goals Coach Driver Goals PT Assisted Goals Time Frame: Jul 08, 2022 Roll Left & Right (QC): 6 Sit to Lying (QC): 6 Lying-Sitting on Side/Bed(QC): 6 Sit to Stand (QC): 6 Chair/Lnt-ez-Ppjsy Xfer(QC): 6 Toilet Transfer (QC): 6 Walk 10 feet (QC): 4 PT Plan Problem List Problem List: Activity Tolerance, Functional Strength, Safety, Gait, Transfer, Bed Mobility Treatment/Plan Treatment Plan: Continue Plan of Care Treatment Plan: Bed Mobility, Education, Functional Activity Janeth, Functional Strength, Gait, Safety, Therapeutic Exercise, Transfers Treatment Duration: Jul 08, 2022 Frequency: 6 times per week Estimated Hrs Per Day: .25 hour per day Patient and/or Family Agrees t: Yes Safety Risks/Education Patient Education: Reviewed Precautions, Safety Issues Time Time In: 936 Time Out: 953 DATE: Jun 22, 2022 Total Billed Treatment Time: 17 [facility] KE [facility] PT Jun 22, 2022 10:44
[2022-06-22 11:25] VITALS: BP 161/52
--- NOTE | 2022-06-22 15:51 | Progress Note ---
Subjective Subjective/Events-last exam Patient doing well. States that she is anxious. Review of Systems General: Malaise Pulmonary: No Dyspnea, No Cough Cardiovascular: No: Chest Pain, Palpitations Gastrointestinal: No: Nausea, Vomiting, Abdominal Pain, Diarrhea, Constipation Neurological: Weakness, Incoordination Objective Exam Last Set of Vital Signs Vital Signs Date Time Temp Pulse Resp B/P (MAP) Pulse Ox O2 Delivery O2 Flow Rate FiO2 06/22/22 11:25 36.9 71 18 161/52 (88) 96 Room Air Capillary Refill : I&O Intake and Output 06/22/22 00:00 Intake Total 1305 ml Output Total 1500 ml Balance -195 ml Intake Oral 1305 ml Output Urine Total 1500 ml # Voids 3 General: Alert, Oriented X3, No Acute Distress Lungs: Clear to Auscultation, Normal Air Movement Heart: Regular Rate, No Murmurs Abdomen: Normal Bowel Sounds, Soft, No Tenderness, No Masses Extremities: No Edema, No Tenderness/Swelling Neuro: Normal Speech Results/Procedures Lab Laboratory Tests 06/22/22 05:00: White Blood Count 6.3, Red Blood Count 3.95, Hemoglobin 11.6, Hematocrit 35, Mean Corpuscular Volume 88, Mean Corpuscular Hemoglobin 29, Mean Corpuscular Hemoglobin Concent 33, Red Cell Distribution Width 13.0, Platelet Count 202, Mean Platelet Volume 10.8, Immature Granulocyte % (Auto) 1, Neutrophils (%) (Auto) 62, Lymphocytes (%) (Auto) 28, Monocytes (%) (Auto) 8, Eosinophils (%) (Auto) 1, Basophils (%) (Auto) 1, Neutrophils # (Auto) 3.9, Lymphocytes # (Auto) 1.8, Monocytes # (Auto) 0.5, Eosinophils # (Auto) 0.0, Basophils # (Auto) 0.0, Immature Granulocyte # (Auto) 0.0, Sodium Level 134L, Potassium Level 3.7, Chloride Level 101, Carbon Dioxide Level 22, Anion Gap 11, Blood Urea Nitrogen 7, Creatinine 0.66, Estimat Glomerular Filtration Rate 86, BUN/Creatinine Ratio 11, Glucose Level 116H, Calcium Level 9.3, Corrected Calcium 9.6, Total Bilirubin 0.6, Aspartate Amino Transf (AST/SGOT) 28, Alanine Aminotransferase (ALT/SGPT) 25, Alkaline Phosphatase 85, Total Protein 6.3L, Albumin 3.6 Assessment/Plan Assessment/Plan (1) Femur fracture, left Status: Acute Assessment & Plan: - Will f.u with Ortho in the clinic, splint in place, non weight bearing on LLE, IRF and PT orders placed, if she does not get approved w ill need SNF 06/22: Waiting on placement, Since patient is non weight bearing would recommend SNF placement over going home Qualifiers: Qualified Codes: S72.435A - Nondisplaced fracture of medial condyle of left femur, initial encounter for closed fracture (2) Closed femur fracture Status: Acute Qualifiers: Qualified Codes: S72.92XA - Unspecified fracture of left femur, initial encounter for closed fracture (3) HTN (hypertension) Status: Chronic Assessment & Plan: - Restarted home meds 06/22: Added lisinopril today as blood pressure continue to be elevated Qualifiers: Qualified Codes: I10 - Essential (primary) hypertension (4) Anxiety Status: Chronic Assessment & Plan: - Restarted home meds (5) DVT prophylaxis Status: Acute Assessment & Plan: - Started on Lovenox GAULTDEDRA MD Jun 22, 2022 15:51
[2022-06-22 15:54] VITALS: BP 170/72
[2022-06-22] MEDS: ENOXAPARIN INJECTION 30 MG/0.3 ML SYR SC SCH (16:24)
[2022-06-22] MEDS: lisINopril 10 MG (PRINIVIL) TABLET PO SCH (16:24)
[2022-06-22 19:05] VITALS: BP 148/68
[2022-06-22] MEDS: polyethylene glycoL POWDER 17 GM (MIRALAX) PACK PO SCH (21:25)
[2022-06-22] MEDS: MELATONIN 3 MG TABLET PO SCH (21:25)
[2022-06-23] VITALS (7 sets, daily range): BP systolic 101–168; BP diastolic 52–77
[2022-06-23] MEDS: KETOROLAC 15 MG/ML VIAL IV PRN ×3 (00:09→23:43)
[2022-06-23] MEDS: polyethylene glycoL POWDER 17 GM (MIRALAX) PACK PO SCH ×2 (09:10→19:19)
[2022-06-23] MEDS: lisINopril 10 MG (PRINIVIL) TABLET PO SCH (09:10)
[2022-06-23] MEDS: PANTOPRAZOLE 40 MG (PROTONIX) TAB PO SCH (09:10)
[2022-06-23] MEDS: morphine INJ 4 MG/ML 1 ML (VIAL/SYRINGE) IV PRN ×3 (09:10→20:50)
[2022-06-23] MEDS: amLODIPine 10 MG (NORVASC) TAB PO SCH (09:10)
--- NOTE | 2022-06-23 11:41 | Physical Therapy Progress Note ---
Therapy Progress Note Patient and family declined PT due to abdominal cramping and diarrhea. They requested to not return until tomorrow. RN notified. 1 ref KE PLAZA PT Jun 23, 2022 11:41
--- NOTE | 2022-06-23 11:57 | Progress Note ---
Subjective Subjective/Events-last exam Patient doing well this AM. States that she has some N/V last night after eating dinner. Daughter present this AM Review of Systems General: Fatigue Pulmonary: No Dyspnea, No Cough Cardiovascular: No: Chest Pain, Palpitations, Edema Gastrointestinal: Nausea, Vomiting, Abdominal Pain; No: Diarrhea, Constipation Neurological: Weakness, Incoordination Objective Exam Last Set of Vital Signs Vital Signs Date Time Temp Pulse Resp B/P (MAP) Pulse Ox O2 Delivery O2 Flow Rate FiO2 06/23/22 11:14 35.9 75 18 116/55 (75) 93 Room Air Capillary Refill : I&O Intake and Output 06/23/22 00:00 Intake Total 2400 ml Output Total 1000 ml Balance 1400 ml Intake Oral 1200 ml IV Total 1200 ml Output Urine Total 1000 ml # Voids 1 General: Alert, Oriented X3, No Acute Distress Lungs: Clear to Auscultation, Normal Air Movement Heart: Regular Rate, No Murmurs Abdomen: Normal Bowel Sounds, Soft, No Tenderness Extremities: Other (Left LE in spint) Neuro: Normal Speech Assessment/Plan Assessment/Plan (1) Femur fracture, left Status: Acute Assessment & Plan: - Will f.u with Ortho in the clinic, splint in place, non weight bearing on LLE, IRF and PT orders placed, if she does not get approved will need SNF 06/22: Waiting on placement, Since patient is non weight bearing would recommend SNF placement over going home 06/23: Awaiting SNF placement at [facility], They have accepted the patient but could take patient Sunday Qualifiers: Qualified Codes: S72.435A - Nondisplaced fracture of medial condyle of left femur, initial encounter for closed fracture (2) Closed femur fracture Status: Acute Qualifiers: Qualified Codes: S72.92XA - Unspecified fracture of left femur, initial encounter for closed fracture (3) HTN (hypertension) Status: Chronic Assessment & Plan: - Restarted home meds 06/22: Added lisinopril today as blood pressure continue to be elevated 06/23: Blood pressures better controlled Qualifiers: Qualified Codes: I10 - Essential (primary) hypertension (4) Anxiety Status: Chronic Assessment & Plan: - Restarted home meds (5) DVT prophylaxis Status: Acute Assessment & Plan: - Started on Lovenox DEDRA CHACON MD Jun 23, 2022 11:57
[2022-06-23] MEDS: ENOXAPARIN INJECTION 30 MG/0.3 ML SYR SC SCH (17:30)
[2022-06-23] MEDS ORDERED: NICOTINE 21 MG (NICODERM) PATCH ONE (20:46)
[2022-06-23] MEDS: MELATONIN 3 MG TABLET PO SCH (20:50)
[2022-06-23] MEDS: NICOTINE 21 MG (NICODERM) PATCH TD SCH (20:51)
[2022-06-23] MEDS: ONDANSETRON 4 MG/2 ML (SDV) Z0FRAN IVP PRN (23:47)
[2022-06-24] VITALS (7 sets, daily range): BP systolic 95–155; BP diastolic 44–64
[2022-06-24] MEDS: morphine INJ 4 MG/ML 1 ML (VIAL/SYRINGE) IV PRN ×2 (05:58→20:49)
[2022-06-24 06:07] LABS: BASOPHILS % (AUTO) 1 % (0-10); EOSINOPHILS # (AUTO) 0.1 10^3/uL (0.0-0.3); EOSINOPHILS % (AUTO) 1 % (0-10); HEMATOCRIT 31 % (35-52); HEMOGLOBIN 10.4 g/dL (11.5-16.0); LYMPHOCYTES # (AUTO) 1.5 10^3/uL (1.0-4.0); LYMPHOCYTES % (AUTO) 34 % (12-44); MEAN CORPUSCULAR HEMOGLOBIN 30 pg (25-34); MEAN CORPUSCULAR HGB CONC 34 g/dL (32-36); MEAN CORPUSCULAR VOLUME 88 fL (80-99); MEAN PLATELET VOLUME 10.8 fL (9.0-12.2); MONOCYTES # (AUTO) 0.6 10^3/uL (0.0-1.0); MONOCYTES % (AUTO) 13 % (0-12); NEUTROPHILS # (AUTO) 2.3 10^3/uL (1.8-7.8); NEUTROPHILS % (AUTO) 51 % (42-75); PLATELET COUNT 191 10^3/uL (130-400); WHITE BLOOD COUNT 4.4 10^3/uL (4.3-11.0)
[2022-06-24 06:28] LABS: BILIRUBIN,TOTAL 0.5 MG/DL (0.1-1.0); CALCIUM 9.2 MG/DL (8.5-10.1); CREATININE SERUM 0.86 MG/DL (0.60-1.30); POTASSIUM 3.2 MMOL/L (3.6-5.0); TOTAL PROTEIN 5.5 GM/DL (6.4-8.2)
[2022-06-24] MEDS: polyethylene glycoL POWDER 17 GM (MIRALAX) PACK PO SCH ×2 (07:30→19:36)
--- NOTE | 2022-06-24 08:26 | Physical Therapy Progress Note ---
Therapy Progress Note Patient refuses treatment. Reports she is still having severe abdominal cramping and had diarrhea all night. Reports she will work with PT tomorrow. Nurse notified. MARICARMEN MCDERMOTT PT Jun 24, 2022 08:26
[2022-06-24] MEDS: NICOTINE 21 MG (NICODERM) PATCH TD SCH (08:34)
[2022-06-24] MEDS: ONDANSETRON 4 MG/2 ML (SDV) Z0FRAN IVP PRN (08:34)
[2022-06-24] MEDS: lisINopril 10 MG (PRINIVIL) TABLET PO SCH (08:35)
[2022-06-24] MEDS: PANTOPRAZOLE 40 MG (PROTONIX) TAB PO SCH (08:35)
[2022-06-24] MEDS: amLODIPine 10 MG (NORVASC) TAB PO SCH (08:35)
[2022-06-24] MEDS: KETOROLAC 15 MG/ML VIAL IV PRN ×2 (10:27→16:59)
--- NOTE | 2022-06-24 11:58 | Progress Note - Hospitalist ---
Subjective HPI/CC On Admission Date Seen by Provider: Jun 24, 2022 Time Seen by Provider: 11:45 Subjective/Events-last exam Patient reports diarrhea is moderating that began abruptly several hours after she had some salmon in the cafeteria per her report. She is still having some bilateral lower quadrant abdominal pain and reports that she did have a past history of colitis that resulted in colonoscopic evaluation that revealed that it was resolving he did not require hospitalization and it does not sound like it required antibiotics either. This was Approximately a year ago according to the patient. She has had no chills or fever and denies melena or bright red blood per rectum. She also reports no antibiotic use in the recent or even more distant past. Objective Exam Vital Signs Vital Signs Date Time Temp Pulse Resp B/P (MAP) Pulse Ox O2 Delivery O2 Flow Rate FiO2 06/24/22 11:43 36.7 68 18 95/56 (69) 94 Room Air Capillary Refill : General Appearance: Anxious Respiratory: Chest Non Tender, Lungs Clear, Normal Breath Sounds, No Accessory Muscle Use, No Respiratory Distress Cardiovascular: Regular Rate, Rhythm, No Edema, No Gallop, Systolic Murmur (1- 2/6 heard best at second intercostal space) Gastrointestinal: Normal Bowel Sounds, No Organomegaly, No Pulsatile Mass, Soft, Other ( generalized discomfort to palpation most prominent in the lower quadrants bilaterally) Results/Procedures Lab Laboratory Tests 06/24/22 05:47 Patient resulted labs reviewed. Assessment/Plan Assessment and Plan Assess & Plan/Chief Complaint Admission Status: Inpatient Order (span 2 midnights) Reason for Inpatient Admission: need for therapy and placement as she in not safe to go home alone (1) Femur fracture, left Status: Acute Assessment & Plan: - Will f.u with Ortho in the clinic, splint in place, non weight bearing on LLE, IRF and PT orders placed, if she does not get approved will need SNF Qualifiers: Qualified Codes: S72.435A - Nondisplaced fracture of medial condyle of left femur, initial encounter for closed fracture (2) Closed femur fracture Status: Acute Qualifiers: Qualified Codes: S72.92XA - Unspecified fracture of left femur, initial encounter for closed fracture (3) HTN (hypertension) Status: Chronic Assessment & Plan: - Restarted home meds Qualifiers: Qualified Codes: I10 - Essential (primary) hypertension (4) Anxiety Status: Chronic Assessment & Plan: - Restarted home meds (5) DVT prophylaxis Status: Acute Assessment & Plan: - Started on Lovenox 6. Probable gastroenteritis resolving no invasive symptomatology white count normal continue conservative management. There is some secondary mild hypoka lemia will initiate oral replacement with 8 mill equivalents potassium now and then daily p.o. Patient has apparently been accepted at [facility]. Pain under reasonable control minimal swelling about the left knee with no distal edema. Continue nonweightbearing status and conservative management per Ortho. Will add as needed Tylenol. HAILY ARANDA MD Jun 24, 2022 11:58
[2022-06-24] MEDS ORDERED: KCL 8 MEQ (MICRO K) TABLET PO ONE (12:00)
[2022-06-24] MEDS ORDERED: ACETAMINOPHEN 325 MG TABLET PO PRN (12:00)
[2022-06-24] MEDS: ENOXAPARIN INJECTION 30 MG/0.3 ML SYR SC SCH (16:59)
[2022-06-24] MEDS: MELATONIN 3 MG TABLET PO SCH (20:49)
[2022-06-25] VITALS (7 sets, daily range): BP systolic 119–164; BP diastolic 53–68
[2022-06-25] MEDS: KETOROLAC 15 MG/ML VIAL IV PRN ×2 (00:14→06:41)
[2022-06-25] MEDS: KCL 8 MEQ (MICRO K) TABLET PO SCH (06:41)
[2022-06-25] MEDS: NICOTINE 21 MG (NICODERM) PATCH TD SCH (08:29)
[2022-06-25] MEDS: morphine INJ 4 MG/ML 1 ML (VIAL/SYRINGE) IV PRN (08:29)
[2022-06-25] MEDS: ONDANSETRON 4 MG/2 ML (SDV) Z0FRAN IVP PRN ×2 (08:29→14:51)
[2022-06-25] MEDS: amLODIPine 10 MG (NORVASC) TAB PO SCH (08:29)
[2022-06-25] MEDS: lisINopril 10 MG (PRINIVIL) TABLET PO SCH (08:29)
[2022-06-25] MEDS: PANTOPRAZOLE 40 MG (PROTONIX) TAB PO SCH (08:29)
[2022-06-25] MEDS: PATCH REMOVAL TP SCH (08:30)
[2022-06-25] MEDS: polyethylene glycoL POWDER 17 GM (MIRALAX) PACK PO SCH ×2 (08:32→20:44)
--- NOTE | 2022-06-25 10:43 | Physical Therapy Daily Note ---
PT Daily Note-Current Subjective Patient lying supine in bed upon PT arrival, initially refuses treatment reporting that her pain was severe last evening and she was unable to relax. Reports she got pain medicine at ~23:00 and has been asleep since then. Nurse came into the room and encouraged patient to participate. Pain Section J - Health Conditions 1. Rarely or not at all 2. Occasionally 3. Frequently 4. Almost constantly 8. Unable to answer Pain Effect on Sleep: 3 Pain Interference with Therapy: 2 Pain Interference w/Day-to-Day: 3 Mental Status Patient Orientation: Person Transfers SCALE: Activities may be completed with or without assistive devices. 2-Ogcqoxdbts-shnbjgt completes the activity by him/herself with no assistance from a helper. 5-Set-up or Clean-up Assistance-helper sets up or cleans up; patient completes activity. [place] assists only prior to or following the activity. 4-Supervision or Touching Assistance-helper provides verbal cues and/or touching/steadying and/or contact guard assistance as patient completes activity. Assistance may be provided throughout the activity or intermittently. 3-Partial/Moderate Assistance-helper does LESS THAN HALF the effort. [place] lif ts, holds or supports trunk or limbs, but provides less than half the effort. 2-Substantial/Maximal Assistance-helper does MORE THAN HALF the effort. [place] lifts or holds trunk or limbs and provides more than half the effort. 3-Mwaeqcudp-evmhwb does ALL the effort. Patient does none of the effort to complete the activity. Or, the assistance of 2 or more helpers is required for the patient to complete the activity. If activity was not attempted, code reason: 7-Patient Refused. 9-Not Applicable-not attempted and the patient did not perform the activity before the current illness, exacerbation or injury. 10-Not Attempted due to Environmental Limitations-(lack of equipment, weather restraints, etc.). 88-Not Attempted due to Medical Conditions or Safety Concerns. Roll Left & Right (QC): 4 Sit to Lying (QC): 4 Lying to Sitting/Side of Bed(Q: 4 Sit to Stand (QC): 4 Chair/Zot-pa-Tidvy Xfer(QC): 4 Weight Bearing Right Lower Extremity: Right Weight Bearing/Tolerated Left Lower Extremity: Left Non Weight Bearing locked hinged knee brace left LE Gait Training Does the Patient Walk?: Yes Distance: 30 feet Walk 10 feet (QC): 4 Gait Assistive Device: FWW Assessment Current Status: Fair Progress Patient performs all bed mobility and transfers with CGA/SBA. She ambulates 30 feet in the room with FWW, with CGA and verbal cues for safety, progression, obstacles and NWB left LE. She allows the foot to rest briefly on the floor during gait, but overall appears to maintain NWB during gait. Patient on BSC post treatment with all needs met, nurse notified, call light in reach. PT Hammerer Helper Goals Hammerer Helper Goals PT Hammerer Helper Goals Time Frame: Jul 08, 2022 Roll Left & Right (QC): 6 Sit to Lying (QC): 6 Lying-Sitting on Side/Bed(QC): 6 Sit to Stand (QC): 6 Chair/Pzc-rq-Dbvvh Xfer(QC): 6 Toilet Transfer (QC): 6 Walk 10 feet (QC): 4 PT Plan Treatment/Plan Treatment Plan: Continue Plan of Care Treatment Plan: Bed Mobility, Education, Functional Activity Janeth, Functional Strength, Gait, Safety, Therapeutic Exercise, Transfers Treatment Duration: Jul 08, 2022 Frequency: 6 times per week Estimated Hrs Per Day: .25 hour per day Patient and/or Family Agrees t: Yes Safety Risks/Education Patient Education: Gait Training, Transfer Techniques Teaching Recipient: Patient Teaching Methods: Demonstration, Discussion Response to Teaching: Verbalize Understanding, Return Demonstration Time Time In: 939 Time Out: 953 DATE: Jun 25, 2022 Total Billed Treatment Time: 14 Total Billed Treatment Visit, Gait MARICARMEN MCDERMOTT PT Jun 25, 2022 10:43
--- NOTE | 2022-06-25 11:06 | Progress Note - Hospitalist ---
Subjective HPI/CC On Admission Date Seen by Provider: Jun 25, 2022 Time Seen by Provider: 11:02 Subjective/Events-last exam Patient feeling better less stomach pain stools forming up only had 2 yesterday with no evidence for blood. P.o. intake improved she does report nasal congestion with allergy issues and ask about going back on Flonase that she has been taking on a regular basis. Still requiring some intermittent morphine for knee/fracture related pain. Objective Exam Vital Signs Vital Signs Date Time Temp Pulse Resp B/P (MAP) Pulse Ox O2 Delivery O2 Flow Rate FiO2 06/25/22 08:35 68 20 127/58 (81) 06/25/22 08:00 Room Air 06/25/22 07:46 35.9 95 Capillary Refill : General Appearance: No Apparent Distress Respiratory: Chest Non Tender, Lungs Clear, Normal Breath Sounds, No Accessory Muscle Use, No Respiratory Distress Cardiovascular: Regular Rate, Rhythm, No Edema, No Gallop, No JVD, No Murmur, Normal Peripheral Pulses Gastrointestinal: Normal Bowel Sounds, No Organomegaly, Soft, Tenderness (In the lower quadrants decreased from yesterday) Extremity: Other ( less edema about the left knee and no erythema no lower extremity swelling.) Results/Procedures Lab Patient resulted labs reviewed. Assessment/Plan Assessment and Plan Assess & Plan/Chief Complaint Admission Status: Inpatient Order (span 2 midnights) Reason for Inpatient Admission: need for therapy and placement as she in not safe to go home alone (1) Femur fracture, left Status: Acute Assessment & Plan: - Will f.u with Ortho in the clinic, splint in place, non weight bearing on LLE, IRF and PT orders placed, if she does not get approved will need SNF Qualifiers: Qualified Codes: S72.435A - Nondisplaced fracture of medial condyle of left femur, initial encounter for closed fracture (2) Closed femur fracture Status: Acute Qualifiers: Qualified Codes: S72.92XA - Unspecified fracture of left femur, initial encounter for closed fracture (3) HTN (hypertension) Status: Chronic Assessment & Plan: - Restarted home meds Qualifiers: Qualified Codes: I10 - Essential (primary) hypertension (4) Anxiety Status: Chronic Assessment & Plan: - Restarted home meds (5) DVT prophylaxis Status: Acute Assessment & Plan: - Started on Lovenox 6. Probable gastroenteritis resolving no invasive symptomatology white count normal continue conservative management. There is some secondary mild hypokalemia will initiate oral replacement with 8 mill equivalents potassium now and then daily p.o. Patient has apparently been accepted at [facility]. Pain under reasonable control minimal swelling about the left knee with no distal edema. Continue nonweightbearing status and conservative management per Ortho. Will add as needed Tylenol. 06/25: Resolving likely gastroenteritis with improved p.o. intake. In preparation for discharge [facility] tomorrow we will DC IV morphine discussed sparing use of narcotics she reports that she has gotten along with oxycodone in the past. Will initiate scheduled 650 mg Tylenol every 8 hours as needed oxycodone that the patient was tried to use sparingly and advised ice first. Discussed that she would need to limit total number of Tylenol plus oxycodone to 6 per 24 hours AHILY Chau MD Jun 25, 2022 11:06
[2022-06-25] MEDS: ACETAMINOPHEN 325 MG TABLET PO SCH ×2 (11:13→18:58)
[2022-06-25] MEDS: FLUTICASONE NASAL SPRAY (FLONASE) 16 GM BTL NS SCH (12:40)
[2022-06-25] MEDS: oxyCODONE/APAP 5/325MG (PERCOCET 5) TABLET PO PRN ×2 (15:10→21:07)
[2022-06-25] MEDS: ENOXAPARIN INJECTION 30 MG/0.3 ML SYR SC SCH (18:59)
[2022-06-25] MEDS: MELATONIN 3 MG TABLET PO SCH (21:07)
[2022-06-26] MEDS: ONDANSETRON 4 MG/2 ML (SDV) Z0FRAN IVP PRN ×3 (01:33→23:57)
[2022-06-26 03:23] VITALS: BP 134/61
[2022-06-26] MEDS: ACETAMINOPHEN 325 MG TABLET PO SCH ×5 (03:35→21:38)
[2022-06-26 06:18] LABS: BASOPHILS # (AUTO) 0.1 10^3/uL (0.0-0.1); BASOPHILS % (AUTO) 1 % (0-10); EOSINOPHILS # (AUTO) 0.1 10^3/uL (0.0-0.3); EOSINOPHILS % (AUTO) 1 % (0-10); HEMATOCRIT 33 % (35-52); HEMOGLOBIN 11.1 g/dL (11.5-16.0); LYMPHOCYTES # (AUTO) 1.6 10^3/uL (1.0-4.0); LYMPHOCYTES % (AUTO) 28 % (12-44); MEAN CORPUSCULAR HEMOGLOBIN 31 pg (25-34); MEAN CORPUSCULAR HGB CONC 34 g/dL (32-36); MEAN CORPUSCULAR VOLUME 91 fL (80-99); MEAN PLATELET VOLUME 10.8 fL (9.0-12.2); MONOCYTES # (AUTO) 0.6 10^3/uL (0.0-1.0); MONOCYTES % (AUTO) 11 % (0-12); NEUTROPHILS # (AUTO) 3.3 10^3/uL (1.8-7.8); NEUTROPHILS % (AUTO) 58 % (42-75); PLATELET COUNT 262 10^3/uL (130-400); WHITE BLOOD COUNT 5.7 10^3/uL (4.3-11.0)
[2022-06-26] MEDS: KCL 8 MEQ (MICRO K) TABLET PO SCH (06:27)
[2022-06-26 06:28] LABS: ALBUMIN 3.6 GM/DL (3.2-4.5); BILIRUBIN,TOTAL 0.4 MG/DL (0.1-1.0); CREATININE SERUM 0.81 MG/DL (0.60-1.30); POTASSIUM 3.8 MMOL/L (3.6-5.0); TOTAL PROTEIN 6.6 GM/DL (6.4-8.2)
[2022-06-26 07:48] VITALS: BP 145/67
[2022-06-26] MEDS: FLUTICASONE NASAL SPRAY (FLONASE) 16 GM BTL NS SCH (09:51)
[2022-06-26] MEDS: PATCH REMOVAL TP SCH (09:52)
[2022-06-26] MEDS: polyethylene glycoL POWDER 17 GM (MIRALAX) PACK PO SCH ×2 (09:52→21:38)
[2022-06-26] MEDS: lisINopril 10 MG (PRINIVIL) TABLET PO SCH (09:52)
[2022-06-26] MEDS: amLODIPine 10 MG (NORVASC) TAB PO SCH (09:52)
[2022-06-26] MEDS: PANTOPRAZOLE 40 MG (PROTONIX) TAB PO SCH (09:52)
[2022-06-26] MEDS: NICOTINE 21 MG (NICODERM) PATCH TD SCH (09:52)
--- NOTE | 2022-06-26 10:05 | Physical Therapy Daily Note ---
PT Daily Note-Current Subjective Patient agrees to PT. Pain Numeric Pain Scale: 5-Moderate Pain Location: Left Location Body Site: Thigh Pain Description: Acute Section J - Health Conditions 1. Rarely or not at all 2. Occasionally 3. Frequently 4. Almost constantly 8. Unable to answer Pain Effect on Sleep: 3 Pain Interference with Therapy: 2 Pain Interference w/Day-to-Day: 3 Mental Status Patient Orientation: Person, Time, Situation Transfers SCALE: Activities may be completed with or without assistive devices. 3-Pfnvrnmhrb-jktjvxj completes the activity by him/herself with no assistance from a helper. 5-Set-up or Clean-up Assistance-helper sets up or cleans up; patient completes activity. [place] assists only prior to or following the activity. 4-Supervision or Touching Assistance-helper provides verbal cues and/or touching/steadying and/or contact guard assistance as patient completes activity. Assistance may be provided throughout the activity or intermittently. 3-Partial/Moderate Assistance-helper does LESS THAN HALF the effort. [place] lifts, holds or supports trunk or limbs, but provides less than half the effort. 2-Substantial/Maximal Assistance-helper does MORE THAN HALF the effort. [place] lifts or holds trunk or limbs and provides more than half the effort. 7-Dsvcxjwqf-ohrcsu does ALL the effort. Patient does none of the effort to c omplete the activity. Or, the assistance of 2 or more helpers is required for the patient to complete the activity. If activity was not attempted, code reason: 7-Patient Refused. 9-Not Applicable-not attempted and the patient did not perform the activity before the current illness, exacerbation or injury. 10-Not Attempted due to Environmental Limitations-(lack of equipment, weather restraints, etc.). 88-Not Attempted due to Medical Conditions or Safety Concerns. Lying to Sitting/Side of Bed(Q: 6 Sit to Stand (QC): 4 Chair/Mjk-lp-Vdlgo Xfer(QC): 4 Toilet Transfer (QC): 4 Weight Bearing Right Lower Extremity: Right Weight Bearing/Tolerated Left Lower Extremity: Left Non Weight Bearing locked hinged knee brace left LE Gait Training Distance: 15' x 2 Walk 10 feet (QC): 4 Gait Assistive Device: FWW patient able to maintain NWB left LE with VC's by PT. Patient does place foot down for balance but appears to maintain NWB Assessment Patient tolerated treatment well and is up in recliner with need met. Patient requires VC's for NWB left LE. PT Nursing Home Goals Cement Cutter Goals PT Cement Cutter Goals Time Frame: Jul 08, 2022 Roll Left & Right (QC): 6 Sit to Lying (QC): 6 Lying-Sitting on Side/Bed(QC): 6 Sit to Stand (QC): 6 Chair/Ekh-ug-Ajruu Xfer(QC): 6 Toilet Transfer (QC): 6 Walk 10 feet (QC): 4 PT Plan Treatment/Plan Treatment Plan: Continue Plan of Care Treatment Plan: Bed Mobility, Education, Functional Activity Janeth, Functional Strength, Gait, Safety, Therapeutic Exercise, Transfers Treatment Duration: Jul 08, 2022 Frequency: 6 times per week Estimated Hrs Per Day: .25 hour per day Patient and/or Family Agrees t: Yes Time Time In: 935 Time Out: 947 DATE: Jun 26, 2022 Total Billed Treatment Time: 12 Total Billed Treatment 1 visit GT 12 min KE PLAZA PT Jun 26, 2022 10:05
[2022-06-26] MEDS ORDERED: OXYC1TAB87 PO (10:56)
[2022-06-26] MEDS ORDERED: AMLO-251 PO (10:56)
[2022-06-26] MEDS ORDERED: LISI10TA25 PO (10:56)
[2022-06-26] MEDS ORDERED: POLY17PO54 PO (10:56)
[2022-06-26] MEDS ORDERED: ESOM40CA52 PO (10:56)
[2022-06-26] MEDS ORDERED: NICO1PAT34 TD (10:56)
[2022-06-26] MEDS ORDERED: FLUT16SP22 NS (10:56)
[2022-06-26] MEDS ORDERED: LORA-404 PO (10:56)
[2022-06-26] MEDS ORDERED: ONDA-105 PO (10:56)
[2022-06-26] MEDS ORDERED: ENXP30I.3 SC (10:56)
[2022-06-26] MEDS ORDERED: POTA8CAP20 PO (10:56)
[2022-06-26] MEDS ORDERED: MELA3TAB39 PO (10:56)
[2022-06-26] MEDS ORDERED: ACET-2267 PO (10:56)
--- NOTE | 2022-06-26 10:57 | Discharge Inst-Skilled Nursing ---
Discharge Inst-Skilled NF Reconcile Patient Problems Problems Reviewed?: Yes Patient Instructions Patient Problems: Hip fx Goal: [place] Consult/Follow Up/Orders Follow Up Appt.: PCP 1 week Skilled NF Admit to: [facility] Certification (SNF) I certify that SNF services are required to be given on an inpatient basis because of the above named patient's need for care home care on a continuing basis for the conditions(s) for which he/she was receiving inpatient hospital services prior to his/her transfer to the SNF. [facility] Facility Order: Nursing Services, [employer] Specialist-Evaluate & Treat, Physical Therapy-Evaluate & Treat Oxygen Delivery Method: Room Air Discharge Diet: No Restrictions Resuscitation Status: Full Code New & Resume Previous Orders New Medications: Enoxaparin Sodium (Lovenox) 30 Mg/0.3 Ml Syringe 30 MG SC Q24H, #30 SYRINGE Fluticasone Propionate (Fluticasone Propionate) 50 Mcg/Actuation [place].susp 0 SPRAY NS DAILY, #1 EACH 2 puffs each nostril daily Lisinopril (Lisinopril) 10 Mg Tablet 10 MG PO DAILY, #30 TAB Melatonin (Melatonin) 3 Mg Tablet 6 MG PO HS, #30 TAB Nicotine (Nicoderm Cq) 21 Mg/24 Hour Patch.td24 21 MG TD DAILY, #30 PATCH Oxycodone HCl/Acetaminophen (Percocet 5-325 mg Tablet) 1 Each Tablet 1 TAB PO Q6HR PRN for PAIN-MODERATE (5-7), #20 TAB Polyethylene Glycol 3350 (Polyethylene Glycol 3350) 17 Gram Powd.pack 17 GM PO BID, #60 EACH Potassium Chloride (Potassium Chloride) 8 Meq Capsule.er 8 MEQ PO DAILY@0700, #30 CAP Continued Medications: Acetaminophen (Tylenol Extra Strength) 500 Mg Tablet 500 MG PO Q6H PRN for PAIN-MILD (1-4), #30 TAB (This prescription has been renewed) Amlodipine Besylate (Amlodipine Besylate) 10 Mg Tablet 10 MG PO DAILY, #30 TAB (This prescription has been renewed) Esomeprazole Magnesium (Esomeprazole Magnesium) 40 Mg Capsule.dr 40 MG PO DAILY, #30 CAP (This prescription has been renewed) Lorazepam (Ativan) 0.5 Mg Tablet 0.5 MG PO TID PRN for ANXIETY, #15 TAB (This prescription has been renewed) Ondansetron HCl (Ondansetron HCl) 4 Mg Tablet 4 MG PO Q6H PRN for NAUSEA/VOMITING-1ST LINE, #10 TAB (This prescription has been renewed) Lisa Singh Jun 26, 2022 10:56 LISA SINGH DO Jun 26, 2022 10:57
--- NOTE | 2022-06-26 10:57 | Discharge Summary ---
Discharge Summary Hospital Course Hospital Course Date of Admission: Jun 20, 2022 at 16:04 Admission Diagnosis : Family Physician/Provider: Rk Lizama MD Date of Discharge: 06/26/22 Discharge Diagnosis: [ ] Hospital Course: [ ] Labs and Pending Lab Test: Laboratory Tests 06/26/22 05:37: White Blood Count 5.7, Red Blood Count 3.61L, Hemoglobin 11.1L, Hematocrit 33L, Mean Corpuscular Volume 91, Mean Corpuscular Hemoglobin 31, Mean Corpuscular Hemoglobin Concent 34, Red Cell Distribution Width 12.6, Platelet Count 262, Mean Platelet Volume 10.8, Immature Granulocyte % (Auto) 1, Neutrophils (%) (Auto) 58, Lymphocytes (%) (Auto) 28, Monocytes (%) (Auto) 11, Eosinophils (%) (Auto) 1, Basophils (%) (Auto) 1, Neutrophils # (Auto) 3.3, Lymphocytes # (Auto) 1.6, Monocytes # (Auto) 0.6, Eosinophils # (Auto) 0.1, Basophils # (Auto) 0.1, Immature Granulocyte # (Auto) 0.0, Sodium Level 136, Potassium Level 3.8, Chloride Level 101, Carbon Dioxide Level 24, Anion Gap 11, Blood Urea Nitrogen 11, Creatinine 0.81, Estimat Glomerular Filtration Rate 72, BUN/Creatinine Ratio 14, Glucose Level 105, Calcium Level 10.0, Corrected Calcium 10.3H, Total Bilirubin 0.4, Aspartate Amino Transf (AST/SGOT) 18, Alanine Aminotransferase (ALT/SGPT) 15, Alkaline Phosphatase 85, Total Protein 6.6, Albumin 3.6 Home Meds Active Melatonin 3 Mg Tablet 6 Mg PO HS Polyethylene Glycol 3350 17 Gram Powd.pack 17 Gm PO BID Fluticasone Propionate 50 Mcg/Actuation [place].susp 0 [place] NS DAILY 2 puffs each nostril daily Potassium Chloride 8 Meq Capsule.er 8 Meq PO DAILY@0700 Percocet 5-325 mg Tablet (Oxycodone HCl/Acetaminophen) 1 Each Tablet 1 Tab PO Q6HR PRN Lisinopril 10 Mg Tablet 10 Mg PO DAILY Lovenox (Enoxaparin Sodium) 30 Mg/0.3 Ml Syringe 30 Mg SC Q24H Nicoderm Cq (Nicotine) 21 Mg/24 Hour Patch.td24 21 Mg TD DAILY Ondansetron HCl 4 Mg Tablet 4 Mg PO Q6H PRN Tylenol Extra Strength (Acetaminophen) 500 Mg Tablet 500 Mg PO Q6H PRN Ativan (Lorazepam) 0.5 Mg Tablet 0.5 Mg PO TID PRN Amlodipine Besylate 10 Mg Tablet 10 Mg PO DAILY Esomeprazole Magnesium 40 Mg Capsule.dr 40 Mg PO DAILY Discharge Instructions Discharge Diet: No Restrictions Discharge Physical Examination Vital Signs Vital Signs Date Time Temp Pulse Resp B/P (MAP) Pulse Ox O2 Delivery O2 Flow Rate FiO2 06/26/22 08:00 96 Room Air 06/26/22 07:48 36.6 61 19 145/67 (93) Allergies: Coded Allergies: codeine (Verified Allergy, Unknown, 11/28/18) sulfamethoxazole (Verified Allergy, Unknown, 11/28/18) tramadol (Verified Allergy, Unknown, 11/28/18) trimethoprim (Verified Allergy, Unknown, 11/28/18) Uncoded Allergies: IV CONTRAST (Allergy, Unknown, 11/28/18) Discharge Summary Date of Admission Jun 20, 2022 at 16:04 Date of Discharge Discharge Date: Jun 26, 2022 EARLENE GAYLE DO Jun 26, 2022 10:57
[2022-06-26 11:30] VITALS: BP 152/68
--- NOTE | 2022-06-26 12:33 | Progress Note - Hospitalist ---
KRIS ROGERS 06/26/22 1233: Subjective HPI/CC On Admission Date Seen by Provider: Jun 26, 2022 Time Seen by Provider: 08:15 Subjective/Events-last exam f/u on nondisplaced intra-articular fracture of distal left femur and gasteroenteritis Today patient reports that she has 7/10 in LLE and has some nausea and loss of appetite. Pt reports that she has been constipated for the last 2 days. Denies a ny CP, SOB, vomiting, or abdominal pain. Denies any new or worsening sx. Hospital Course: Mrs. Reyez admitted from 06/20-06/26 after presenting to the ED with chief complaint of fall. Pt reported left knee pain. Patient admitted for pain and placement to rehab center. During her hospital stay patient was followed by orthopedic surgery and her non displaced intra-articular fracture of her distal left femur was splinted and she was advised to be non weight bearing on LLE. During her course she experienced gastroenteritis after eating salmon in the cafeteria. This was managed conservatively and patients symptoms improved. She received potassium replacement for mild hypokalemia likely secondary to diarrhea and IV morphine for pain management. Upon discharge patient will initiate scheduled 650 mg Tylenol q8 hours as needed oxycodone. Discharged to [facility] and rehab. Images: 06/20 - Cervical/Head CT - No acute intracranial or cervical spine CT findings. Knee xray - Large hyperdense joint effusion may be due to hemarthrosis. LE CT - 1. Nondisplaced intra-articular fracture of the distal left femur. 2. Large left knee lipohemarthrosis. Objective Exam Vital Signs Vital Signs Date Time Temp Pulse Resp B/P (MAP) Pulse Ox O2 Delivery O2 Flow Rate FiO2 06/26/22 11:30 36.3 60 18 152/68 (96) 99 Room Air Capillary Refill : General Appearance: No Apparent Distress, WD/WN HEENT: PERRL/EOMI Neck: Non Tender Respiratory: Chest Non Tender, Lungs Clear, Normal Breath Sounds, No Accessory Muscle Use, No Respiratory Distress Cardiovascular: Regular Rate, Rhythm, No Edema, Normal Peripheral Pulses Gastrointestinal: Normal Bowel Sounds Extremity: Normal Capillary Refill, No Pedal Edema Neurologic/Psychiatric: Alert, Oriented x3, Normal Mood/Affect Skin: Normal Color, Warm/Dry Lymphatic: No Adenopathy Results/Procedures Lab Laboratory Tests 06/26/22 05:37 Patient resulted labs reviewed. Assessment/Plan Assessment and Plan Assess & Plan/Chief Complaint Nondisplaced intra-articular fracture of distal left femur splint placed, nonweight bearing on LLE Gastroenteritis with secondary hypokalemia oral replacement of potassium improving po intake conservative management DVT prophylaxis - Lovenox Disposition: d/c [facility] LISA GAYLE DO 06/27/22 0458: Supervisory-Addendum Brief Verification & Attestation Participated in pt care: history, MDM, physical Personally performed: exam, history, MDM, supervision of care Care discussed with: Medical Student Procedures: n/a Results interpretation: Verified all documentation Verification and Attestation of Medical Student E/M Service A medical student performed and documented this service in my presence. I reviewed and verified all information documented by the medical student and made modifications to such information, when appropriate. I personally performed the physical exam and medical decision making. Lisa Gayle, Jun 27, 2022,04:58 KRIS ROGERS Jun 26, 2022 12:33 LISA GAYLE DO Jun 27, 2022 04:58
[2022-06-26 16:04] VITALS: BP 128/79
[2022-06-26] MEDS: oxyCODONE/APAP 5/325MG (PERCOCET 5) TABLET PO PRN (16:17)
[2022-06-26] MEDS: ENOXAPARIN INJECTION 30 MG/0.3 ML SYR SC SCH (17:44)
[2022-06-26 20:39] VITALS: BP 133/55
[2022-06-26] MEDS ORDERED: ACETAMINOPHEN 325 MG TABLET ONE (21:36)
[2022-06-26] MEDS: MELATONIN 3 MG TABLET PO SCH (21:37)
[2022-06-26 23:24] VITALS: BP 127/68
[2022-06-27 04:00] VITALS: BP 164/71
[2022-06-27] MEDS: ONDANSETRON 4 MG/2 ML (SDV) Z0FRAN IVP PRN (05:41)
[2022-06-27] MEDS: KCL 8 MEQ (MICRO K) TABLET PO SCH (05:41)
[2022-06-27 05:52] LABS: BASOPHILS # (AUTO) 0.1 10^3/uL (0.0-0.1); BASOPHILS % (AUTO) 1 % (0-10); EOSINOPHILS # (AUTO) 0.1 10^3/uL (0.0-0.3); EOSINOPHILS % (AUTO) 1 % (0-10); HEMATOCRIT 30 % (35-52); HEMOGLOBIN 10.2 g/dL (11.5-16.0); LYMPHOCYTES # (AUTO) 1.5 10^3/uL (1.0-4.0); LYMPHOCYTES % (AUTO) 30 % (12-44); MEAN CORPUSCULAR HEMOGLOBIN 29 pg (25-34); MEAN CORPUSCULAR HGB CONC 34 g/dL (32-36); MEAN CORPUSCULAR VOLUME 87 fL (80-99); MEAN PLATELET VOLUME 10.9 fL (9.0-12.2); MONOCYTES # (AUTO) 0.5 10^3/uL (0.0-1.0); MONOCYTES % (AUTO) 11 % (0-12); NEUTROPHILS # (AUTO) 2.7 10^3/uL (1.8-7.8); NEUTROPHILS % (AUTO) 56 % (42-75); PLATELET COUNT 251 10^3/uL (130-400); WHITE BLOOD COUNT 4.9 10^3/uL (4.3-11.0)
[2022-06-27] MEDS ORDERED: ACETAMINOPHEN 325 MG TABLET PO SCH (06:00)
[2022-06-27 06:57] LABS: ALBUMIN 3.1 GM/DL (3.2-4.5); BILIRUBIN,TOTAL 0.3 MG/DL (0.1-1.0); CREATININE SERUM 0.74 MG/DL (0.60-1.30); TOTAL PROTEIN 5.6 GM/DL (6.4-8.2)
[2022-06-27 07:13] VITALS: BP 173/72
[2022-06-27] MEDS: lisINopril 10 MG (PRINIVIL) TABLET PO SCH (09:22)
[2022-06-27] MEDS: NICOTINE 21 MG (NICODERM) PATCH TD SCH (09:22)
[2022-06-27] MEDS: amLODIPine 10 MG (NORVASC) TAB PO SCH (09:22)
[2022-06-27] MEDS: PANTOPRAZOLE 40 MG (PROTONIX) TAB PO SCH (09:22)
[2022-06-27] MEDS: FLUTICASONE NASAL SPRAY (FLONASE) 16 GM BTL NS SCH (09:23)
--- NOTE | 2022-06-27 09:56 | Discharge Summary ---
Discharge Summary Hospital Course Was the Problem List Reviewed?: Yes Problems/Dx: (1) Closed femur fracture Status: Acute Qualifiers: Qualified Codes: S72.92XA - Unspecified fracture of left femur, initial encounter for closed fracture (2) HTN (hypertension) Status: Chronic Qualifiers: Qualified Codes: I10 - Essential (primary) hypertension (3) Anxiety Status: Chronic Hospital Course Date of Admission: Jun 20, 2022 at 16:04 Admission Diagnosis : Family Physician/Provider: Rk Lizama MD Date of Discharge: 06/27/22 Discharge Diagnosis: [ ] Hospital Course: Hospital Course: Mrs. Reyez admitted from 06/20-06/27 after presenting to the ED with chief complaint of fall. Pt reported left knee pain. Patient admitted for pain and placement to rehab center. During her hospital stay patient was followed by orthopedic surgery and her non displaced intra-articular fracture of her distal left femur was splinted and she was advised to be non weight bearing on LLE. During her course she experienced gastroenteritis after eating salmon in the cafeteria. This was managed conservatively and patients symptoms improved. She received potassium replacement for mild hypokalemia likely secondary to diarrhea and IV morphine for pain management. 06/27 patient reported some burning, dysuria and urgency upon urination. Urinalysis completed and pending results. Upon discharge patient will initiate scheduled 650 mg Tylenol q8 hours as needed oxycodone. Discharged to [facility] and rehab. Images: 06/20 - Cervical/Head CT - No acute intracranial or cervical spine CT findings. Knee xray - Large hyperdense joint effusion may be due to hemarthrosis. LE CT - 1. Nondisplaced intra-articular fracture of the distal left femur. 2. Large left knee lipohemarthrosis. KRIS ROGERS Labs and Pending Lab Test: Laboratory Tests 06/27/22 05:28: White Blood Count 4.9, Red Blood Count 3.47L, Hemoglobin 10.2L, Hematocrit 30L, Mean Corpuscular Volume 87, Mean Corpuscular Hemoglobin 29, Mean Corpuscular Hemoglobin Concent 34, Red Cell Distribution Width 12.7, Platelet Count 251, Mean Platelet Volume 10.9, Immature Granulocyte % (Auto) 1, Neutrophils (%) (Auto) 56, Lymphocytes (%) (Auto) 30, Monocytes (%) (Auto) 11, Eosinophils (%) (Auto) 1, Basophils (%) (Auto) 1, Neutrophils # (Auto) 2.7, Lymphocytes # (Auto) 1.5, Monocytes # (Auto) 0.5, Eosinophils # (Auto) 0.1, Basophils # (Auto) 0.1, Immature Granulocyte # (Auto) 0.0, Sodium Level 138, Potassium Level 4.0, Chloride Level 105, Carbon Dioxide Level 23, Anion Gap 10, Blood Urea Nitrogen 9, Creatinine 0.74, Estimat Glomerular Filtration Rate 80, BUN/Creatinine Ratio 12, Glucose Level 95, Calcium Level 9.0, Corrected Calcium 9.7, Total Bilirubin 0.3, Aspartate Amino Transf (AST/SGOT) 12, Alanine Aminotransferase (ALT/SGPT) 13, Alkaline Phosphatase 73, Total Protein 5.6L, Albumin 3.1L Home Meds Active Melatonin 3 Mg Tablet 6 Mg PO HS Polyethylene Glycol 3350 17 Gram Powd.pack 17 Gm PO BID Fluticasone Propionate 50 Mcg/Actuation [place].susp 0 [place] NS DAILY 2 puffs each nostril daily Potassium Chloride 8 Meq Capsule.er 8 Meq PO DAILY@0700 Percocet 5-325 mg Tablet (Oxycodone HCl/Acetaminophen) 1 Each Tablet 1 Tab PO Q6HR PRN Lisinopril 10 Mg Tablet 10 Mg PO DAILY Lovenox (Enoxaparin Sodium) 30 Mg/0.3 Ml Syringe 30 Mg SC Q24H Nicoderm Cq (Nicotine) 21 Mg/24 Hour Patch.td24 21 Mg TD DAILY Ondansetron HCl 4 Mg Tablet 4 Mg PO Q6H PRN Tylenol Extra Strength (Acetaminophen) 500 Mg Tablet 500 Mg PO Q6H PRN Ativan (Lorazepam) 0.5 Mg Tablet 0.5 Mg PO TID PRN Amlodipine Besylate 10 Mg Tablet 10 Mg PO DAILY Esomeprazole Magnesium 40 Mg Capsule.dr 40 Mg PO DAILY Assessment/Pt Instructions PCP 1 week Discharge Planning: <30 minutes discharge planning Discharge Instructions Discharge Diet: No Restrictions Activity as Tolerated: Yes Discharge Physical Examination Vital Signs Vital Signs Date Time Temp Pulse Resp B/P (MAP) Pulse Ox O2 Delivery O2 Flow Rate FiO2 06/27/22 07:13 36.3 67 18 173/72 (105) 95 Room Air General Appearance: No Apparent Distress, WD/WN, Chronically ill Allergies: Coded Allergies: codeine (Verified Allergy, Unknown, 11/28/18) sulfamethoxazole (Verified Allergy, Unknown, 11/28/18) tramadol (Verified Allergy, Unknown, 11/28/18) trimethoprim (Verified Allergy, Unknown, 11/28/18) Uncoded Allergies: IV CONTRAST (Allergy, Unknown, 11/28/18) Discharge Summary Date of Admission Jun 20, 2022 at 16:04 Date of Discharge Discharge Date: Jun 26, 2022 EARLENE GAYLE DO Jun 27, 2022 09:56
[2022-06-27] MEDS ORDERED: PHENAZOPYRIDINE 100 MG (PYRIDIUM) TABLET PO NR (10:00)
--- NOTE | 2022-06-27 10:07 | Physical Therapy Daily Note ---
PT Daily Note-Current Subjective Patient agrees to therapy. Pain Section J - Health Conditions 1. Rarely or not at all 2. Occasionally 3. Frequently 4. Almost constantly 8. Unable to answer Pain Effect on Sleep: 3 Pain Interference with Therapy: 2 Pain Interference w/Day-to-Day: 3 Transfers SCALE: Activities may be completed with or without assistive devices. 9-Jxvwxwpdme-tyfjkkt completes the activity by him/herself with no assistance from a helper. 5-Set-up or Clean-up Assistance-helper sets up or cleans up; patient completes activity. [place] assists only prior to or following the activity. 4-Supervision or Touching Assistance-helper provides verbal cues and/or touching/steadying and/or contact guard assistance as patient completes activity. Assistance may be provided throughout the activity or intermittently. 3-Partial/Moderate Assistance-helper does LESS THAN HALF the effort. [place] lifts, holds or supports trunk or limbs, but provides less than half the effort. 2-Substantial/Maximal Assistance-helper does MORE THAN HALF the effort. [place] lifts or holds trunk or limbs and provides more than half the effort. 5-Vrsljmjfv-ipcxgx does ALL the effort. Patient does none of the effort to complete the activity. Or, the assistance of 2 or more helpers is required for the patient to complete the activity. If activity was not attempted, code reason: 7-Patient Refused. 9-Not Applicable-not attempted and the patient did not perform the activity before the current illness, exacerbation or injury. 10-Not Attempted due to Environmental Limitations-(lack of equipment, weather restraints, etc.). 88-Not Attempted due to Medical Conditions or Safety Concerns. Lying to Sitting/Side of Bed(Q: 6 Sit to Stand (QC): 4 Chair/Rvk-kn-Rurde Xfer(QC): 4 Weight Bearing Right Lower Extremity: Right Weight Bearing/Tolerated Left Lower Extremity: Left Non Weight Bearing locked hinged knee brace left LE Gait Training Distance: 10' Walk 10 feet (QC): 4 Gait Assistive Device: FWW able to maintain NWB left LE Assessment Patient up in recliner with needs met. PT to increase activity as tolerated by patient. PT Technology Education Teacher Goals Technology Education Teacher Goals PT Care Home Goals Time Frame: Jul 08, 2022 Roll Left & Right (QC): 6 Sit to Lying (QC): 6 Lying-Sitting on Side/Bed(QC): 6 Sit to Stand (QC): 6 Chair/Zrr-mw-Mjkef Xfer(QC): 6 Toilet Transfer (QC): 6 Walk 10 feet (QC): 4 PT Plan Treatment/Plan Treatment Plan: Continue Plan of Care Treatment Plan: Bed Mobility, Education, Functional Activity Janeth, Functional Strength, Gait, Safety, Therapeutic Exercise, Transfers Treatment Duration: Jul 08, 2022 Frequency: 6 times per week Estimated Hrs Per Day: .25 hour per day Patient and/or Family Agrees t: Yes Time Time In: 845 Time Out: 855 DATE: Jun 27, 2022 Total Billed Treatment Time: 10 Total Billed Treatment 1 visit FA 10 min KE PLAZA PT Jun 27, 2022 10:07
--- NOTE | 2022-06-27 10:15 | Progress Note ---
KRIS ROGERS 06/27/22 1015: Progress Note Hospital Course: Mrs. Reyez admitted from 06/20-06/27 after presenting to the ED with chief complaint of fall. Pt reported left knee pain. Patient admitted for pain and placement to rehab center. During her hospital stay patient was followed by orthopedic surgery and her non displaced intra-articular fracture of her distal left femur was splinted and she was advised to be non weight bearing on LLE. During her course she experienced gastroenteritis after eating salmon in the cafeteria. This was managed conservatively and patients symptoms improved. She received potassium replacement for mild hypokalemia likely secondary to diarrhea and IV morphine for pain management. 06/27 patient reported some burning, dysuria and urgency upon urination. Urinalysis completed and pending results. Upon discharge patient will initiate scheduled 650 mg Tylenol q8 hours as needed oxycodone. Discharged to [facility] and rehab. Images: 06/20 - Cervical/Head CT - No acute intracranial or cervical spine CT findings. Knee xray - Large hyperdense joint effusion may be due to hemarthrosis. LE CT - 1. Nondisplaced intra-articular fracture of the distal left femur. 2. Large left knee lipohemarthrosis. LISA GAYLE DO 06/28/22 0455: Supervisory-Addendum Brief Verification & Attestation Participated in pt care: history, MDM, physical Personally performed: exam, history, MDM, supervision of care Care discussed with: Medical Student Procedures: n/a Results interpretation: Verified all documentation Verification and Attestation of Medical Student E/M Service A medical student performed and documented this service in my presence. I reviewed and verified all information documented by the medical student and made modifications to such information, when appropriate. I personally performed the physical exam and medical decision making. Lisa Gayle Jun 28, 2022,04:55 KRIS ROGERS Jun 27, 2022 10:15 LISA GAYLE DO Jun 28, 2022 04:55
[2022-06-27 10:55] LABS: BILIRUBIN,URINE NEGATIVE (NEGATIVE); CLARITY,URINE CLEAR; COLOR,URINE YELLOW; GLUCOSE, URINE (UA) NEGATIVE (NEGATIVE); KETONES,URINE NEGATIVE (NEGATIVE); LEUKOCYTE ESTERASE ,URINE NEGATIVE (NEGATIVE); NITRITE,URINE NEGATIVE (NEGATIVE); PH,URINE 7.5 (5-9); PROTEIN,URINE NEGATIVE (NEGATIVE)
[2022-06-27 11:11] LABS: BACTERIA,URINE NEGATIVE /HPF; SQUAMOUS EPITHELIAL CELL,UR RARE /HPF
[2022-06-27 11:18] VITALS: BP 116/58
--- NOTE | 2022-06-27 11:41 | Occupational Therapy Eval ---
OT Evaluation-General/PLF Medical Diagnosis Admission Date Jun 20, 2022 at 16:04 Medical Diagnosis: left femur fracture Onset Date: Jun 20, 2022 Therapy Diagnosis Therapy Diagnosis: weakness Precautions Precautions/Isolations: Standard Precautions Weight Bear Status Weight Bearing Restriction: Non Weight Bearing Location Restriction: L LE Referral Physician: Austin Mcfarland Reason: Evaluation/Treatment Medical History Pertinent Medical History: Alcoholism Current History s/p fall w/ femur fx, LE immobilized Social History Home: Apartment Current Living Status: Alone Entry Into Home: Level Entry 6plex ADL-Prior Level of Function SCALE: Activities may be completed with or without assistive devices. 5-Hptrpqtxdt-ptdbsob completes the activity by him/herself with no assistance from a helper. 5-Set-up or Clean-up Assistance-helper sets up or cleans up; patient completes activity. [place] assists only prior to or following the activity. 4-Supervision or Touching Assistance-helper provides verbal cues and/or touching/steadying and/or contact guard assistance as patient completes activity . Assistance may be provided throughout the activity or intermittently. 3-Partial/Moderate Assistance-helper does LESS THAN HALF the effort. [place] lifts, holds or supports trunk or limbs, but provides less than half the effort. 2-Substantial/Maximal Assistance-helper does MORE THAN HALF the effort. [place] lifts or holds trunk or limbs and provides more than half the effort. 2-Vuhpkjthc-boniaz does ALL the effort. Patient does none of the effort to complete the activity. Or, the assistance of 2 or more helpers is required for the patient to complete the activity. If activity was not attempted, code reason: 7-Patient Refused. 9-Not Applicable-not attempted and the patient did not perform the activity before the current illness, exacerbation or injury. 10-Not Attempted due to Environmental Limitations-(lack of equipment, weather restraints, etc.). 88-Not Attempted due to Medical Conditions or Safety Concerns. Self Care: Independent Functional Cognition: Independent Drive Self: No OT Current Status Subjective Agreeable to OT, request coffee w/ medication Mental Status/Objective Patient Orientation: Person, Place, Time, Situation Attachments: Knee Immobilizer Current Upper Extremity ROM BUE ROM WFLS Upper Extremity Coordination INTACT Upper Extremity Sensation INTACT Upper Extremity Strength -4/5 grossly ADL-Treatment Eating (QC): 6 Oral Hygiene (QC): 5 Shower/Bathe Self (QC): 7 Upper Body Dressing (QC): 5 Lower Body Dressing (QC): 3 On/Off Footwear (QC): 3 Toileting Hygiene (QC): 4 Education OT Patient Education: Correct positioning, Energy conservation, Modified ADL techniques, Progress toward Goal/Update tx plan, Purpose of tx/functional activities, Reviewed precautions, Rehab process, Safety issues, Transfer techniques, Use of adapted equipment, W/C management Teaching Recipient: Patient Teaching Methods: Demonstration, Discussion Response to Teaching: Verbalize Understanding, Return Demonstration, Reinforcement Needed OT Penitentiary Goals Penitentiary Goals Oral Hygiene (QC): 6 Toileting Hygiene (QC): 6 Shower/Bathe Self (QC): 4 Upper Body Dressing (QC): 6 Lower Body Dressing (QC): 5 On/Off Footwear (QC): 5 1=Demonstrate adherence to instructed precautions during ADL tasks. 2=Patient will verbalize/demonstrate understanding of assistive devices/modifications for ADL. 3=Patient will improve strength/tolerance for activity to enable patient to perform ADL's. OT Education/Plan Problem List/Assessment Assessment: Decreased Activ Tolerance, Decreased UE Strength, Impaired Self- Care Skills Discharge Recommendations Plan/Recommendations: Continue POC Treatment Plan/Plan of Care Treatment,Training & Education: Yes Patient would benefit from OT for education, treatment and training to promote independence in ADL's, mobility, safety and/or upper extremity function for ADL's. Plan of Care: ADL Retraining, Functional Mobility, Group Exercise/Act as Ind, Orthotic Fitting/Training, UE Funct Exercise/Act Treatment Duration: Jul 01, 2022 Frequency: 3 times per week (3-5 times per week) Estimated Hrs Per Day: .25 hour per day Agreement: Yes Rehab Potential: Fair Time Start Time: 08:45 Stop Time: 09:00 DATE: Jun 27, 2022 Total Time Billed (hr/min): 15 Billed Treatment Time EVM 15 min VELVET GR OT Jun 27, 2022 11:41
[2022-06-27] MEDS: polyethylene glycoL POWDER 17 GM (MIRALAX) PACK PO SCH (12:01)
[2022-06-27] MEDS: PATCH REMOVAL TP SCH (12:02)
[2022-06-27] MEDS: oxyCODONE/APAP 5/325MG (PERCOCET 5) TABLET PO PRN (12:14)
[2022-06-27 13:09] VITALS: BP 116/58
== END 2022-06-27 13:07 | DRG 534 ==
LOC: EDUNIT# 11:39 → ER 11:41 → 4TH 16:04
PROVIDERS: ADMIT Family Medicine; ATTEND Internal Medicine
DX: S72.435A Nondisplaced fracture of medial condyle of left femur, initial encounter for closed fracture (principal); I10 Essential (primary) hypertension; F41.9 Anxiety disorder, unspecified; K52.9 Noninfective gastroenteritis and colitis, unspecified; E87.6 Hypokalemia; W01.0XXA Fall on same level from slipping, tripping and stumbling without subsequent striking against object, initial encounter; F17.210 Nicotine dependence, cigarettes, uncomplicated; K21.9 Gastro-esophageal reflux disease without esophagitis
CPT/HCPCS: 36415; 70450; 72125; 73562; 73700; 80053; 81000; 85025; 96372